=== PATIENT | male | born 1950 | race Caucasian/White ===

== ENCOUNTER → 2016-09-02 | Outpatient (CLI) | payer OTHER ==
[~2016-09-02] MED LIST: AMBIEN CR; AMIT50TA3 PO; AMOXICILLIN; AMT50T; AMX500CRX; ASP325T; ASP81CT; ASP81CT PO; ASPI-999 PO; BACL10TA PO; CALC1TAB38 PO; CALC625T; CALC625T PO; CARV12.52; CARV6.25 PO; CEFU500T5 PO; CHOL10003 PO; CHOL500044 PO; CINNAMON 500 MG PO; CLPL625T; COCO1000 PO; CRV6.25T; CYAN100071 PO; DIPH50CA75 PO; FLAX100031 PO; FLUT1DIS26 IH; FOLIC ACID PO; FRSM40T; FRSM40T PO; GABA300C PO; GLUC1CAP37 PO; HCT25T; HCT25T PO; HYDR-753 PO; IRB150T; IRBE75TA31 PO; IRON; IRON45TA2 PO; LEVO75TA6 PO; LIOTHYSO5 PO; LORA10TA7 PO; LVT.1T PO; MAGN400T6 PO; MELA1TAB16 PO; MELATONIN; METO50TA7 PO; MULT-1029 PO; MULT1TAB63; MULT1TAB63 PO; NF-EXCEDMI; OLME20TA22 PO; OMEG1CAP24 PO; OMG1KC; OMG1KC PO; PNT40TEC PO; POLY1DRO OU; POTA10CA43 PO; ROSU10TA12 PO; SIMV40TA2; TIOT18CA2 IH; UBIQ100C PO; UBIQ100C3 PO; VERA180T PO; VERA40TA2 PO; WRF5T; ZINC15TA2 PO; ZLP5T; ZLP5T PO; [UNRECOGNIZED DRUG - CODE] OU; [UNRECOGNIZED DRUG - CODE] PO; [UNRECOGNIZED DRUG - OTHER] PO; avapro
--- OUTSIDE RECORDS SUMMARY | 2016-09-02 09:09 | XMS REPORT | Continuity of Care Document ---
Author Author [facility] Organization [facility] Address Unknown Phone Unavailable Care Team Providers Care Master Sheet Clerk Name Role Phone Seemamolly Marta PCP [phone] Source Comments Some departments are not documenting in the electronic medical record. If you do not see the information that you expected, contact Release of Information in the Health Information Management department at [phone] for further assistance in locating additional records.[facility] Active Allergies and Adverse Reactions Not on File Current Medications Not on file Active Problems Not on file Social History Tobacco Use Types Packs/Day Years Used Date Never Assessed Last Filed Vital Signs Vital Sign Reading Time Taken Blood Pressure 114/50 12/24/2007 7:30 AM CDT Pulse 75 12/24/2007 7:30 AM CDT Temperature 35.9 C (96.6 F) 12/24/2007 7:30 AM CDT Respiratory Rate - - Height 1.778 m (5' 10") 12/24/2007 7:30 AM CDT Weight 99.791 kg (220 lb) 12/24/2007 7:30 AM CDT Body Mass Index 31.57 12/24/2007 7:30 AM CDT Oxygen Saturation 95% 12/24/2007 7:30 AM CDT Plan of Care Health Maintenance Due Date Last Done Comments Physical (Comprehensive) 1957 Exam Pertussis Vaccine 1960 Tetanus Vaccine 1966 Colorectal Cancer 1999 Screening Shingles Vaccine 2009 Prevnar/Pneumovax (#1) 2014 Influenza Vaccine 04/28/2016 Results from Last 3 Months Not on file
--- NOTE | 2016-09-02 13:54 | Diagnostic Imaging Report ---
PA and lateral views of the chest. INDICATION: Cough and shortness of breath. FINDINGS: When compared to 04/08/2015, there is stable interstitial thickening in the bases likely related to scarring. No definite acute infiltrate. The heart size is normal. No effusion or pneumothorax. Mediastinum unremarkable. There is a pacemaker with two leads seen. IMPRESSION: Stable bilateral thickening in the basilar interstitium suggestive of scarring. No acute process. Dictated by: Dictated on workstation # [id number]
== END ==
LOC: RAD 09:06
PROVIDERS: ATTEND Nurse Practitioner Family
DX: R05 Cough (principal); R06.02 Shortness of breath
CPT/HCPCS: 71020

== ENCOUNTER 2016-09-08 12:24 | Outpatient (CLI) | payer OTHER ==
[~2016-09-08] VITALS: Ht 177.8 cm; Wt 106.3 kg
[~2016-09-08 12:24] MED LIST changes: -BACL10TA PO; -GABA300C PO; -GLUC1CAP37 PO; -HYDR-753 PO; -LORA10TA7 PO; -[UNRECOGNIZED DRUG - CODE] PO
--- OUTSIDE RECORDS SUMMARY | 2016-09-08 12:27 | XMS REPORT | Continuity of Care Document ---
Author Author [facility] Organization [facility] Address Unknown Phone Unavailable Care Team Providers Care Rn Acute Dialysis Name Role Phone Seemamolly Marta PCP [phone] Source Comments Some departments are not documenting in the electronic medical record. If you do not see the information that you expected, contact Release of Information in the Health Information Management department at [phone] for further assistance in locating additional records.[facility] Active Allergies and Adverse Reactions Not [...]
[2016-09-08 12:49] VITALS: BP 119/66
[2016-09-08] MEDS ORDERED: LORA10TA7 PO (13:14)
[2016-09-08] MEDS ORDERED: OMEG1CAP24 PO (13:14)
[2016-09-08] MEDS ORDERED: [UNRECOGNIZED DRUG - CODE] PO (13:14)
[2016-09-08] MEDS ORDERED: GLUC1CAP37 PO (13:14)
[2016-09-08] MEDS ORDERED: GABA300C PO (13:14)
[2016-09-15] MEDS ORDERED: BACL10TA PO (08:10)
[2016-09-15] MEDS ORDERED: HYDR-753 PO (08:10)
== END 2016-09-08 12:45 | disposition home or self-care (01) ==
LOC: PREOP 12:24
PROVIDERS: ATTEND Orthopaedic Surgery Orthopaedic Surgery of the Spine
DX: Z01.818 Encounter for other preprocedural examination (principal); Z11.2 Encounter for screening for other bacterial diseases; M48.06 Spinal stenosis, lumbar region
CPT/HCPCS: 87081

== ENCOUNTER 2016-09-15 06:05 | Day surgery (SDC) | payer OTHER ==
[~2016-09-15] VITALS: Ht 177.8 cm; Wt 106.3 kg
[~2016-09-15 06:05] MED LIST changes: +GABA300C PO; +GLUC1CAP37 PO; +LORA10TA7 PO; +[UNRECOGNIZED DRUG - CODE] PO
--- OUTSIDE RECORDS SUMMARY | 2016-09-15 06:10 | XMS REPORT | Continuity of Care Document ---
Author Author [facility] Organization [facility] Address Unknown Phone Unavailable Care Team Providers Care Emergency Vehicle Dispatcher Name Role Phone Seemamolly Marta PCP [phone] Source Comments Some departments are not documenting in the electronic medical record. If you do not see the information that you expected, contact Release of Information in the Health Information Management department at [phone] for further assistance in locating additional records.[facility] Active Allergies and Adverse Reactions Not on [...]
--- OUTSIDE RECORDS SUMMARY | 2016-09-15 06:10 | XMS REPORT | Continuity of Care Document ---
Author Author [facility] Organization [facility] Address Unknown Phone Unavailable Care Team Providers Care Hospice Fellow Name Role Phone Seemamolly Marta PCP [phone] Source Comments Some departments are not documenting in the electronic medical record. If you do not see the information that you expected, contact Release of Information in the Health Information Management department at [phone] for further assistance in locating additional records.[facility] Active Allergies and Adverse Reactions Not [...]
[2016-09-15 06:20] VITALS: BP 125/56
[2016-09-15] MEDS ORDERED: DEXMEDETOMIDINE PRE-MIX (OR) 50 ML IV ONE (06:24)
[2016-09-15] MEDS ORDERED: MIDAZOLAM 2 MG/2 ML (VERSED) VIAL ONE (06:34)
[2016-09-15] MEDS ORDERED: LIDOCAINE PF 2% 10 ML (XYLOCAINE) AMP ONE (06:34)
[2016-09-15] MEDS ORDERED: LIDOCAINE JELLY 2% (XYLOCAINE) 5 ML TUBE ONE (06:34)
[2016-09-15] MEDS ORDERED: ROCURONIUM 50 MG/5 ML (ZEMURON) VIAL IV ONE (06:34)
[2016-09-15] MEDS ORDERED: ONDANSETRON 4 MG/2 ML (SDV) Z0FRAN ONE (06:34)
[2016-09-15] MEDS ORDERED: LACTATED RINGERS 1,000 ML IV ONE (06:34)
[2016-09-15] MEDS ORDERED: fentaNYL INJECTION 100 MCG/2 ML AMP ONE (06:34)
[2016-09-15] MEDS ORDERED: proPOfol 200 MG/20 ML (DIPRIVAN) VIAL IV ONE (06:34)
[2016-09-15] MEDS ORDERED: RT-ALBUTEROL/IPRATROPIUM 3 ML (DUONEB) VIAL ONE (06:38)
[2016-09-15] MEDS ORDERED: LACTATED RINGERS 1,000 ML IV PRN (06:43)
[2016-09-15] MEDS ORDERED: FAMOTIDINE 20MG/2ML IV (PEPCID) IV ONE (06:45)
[2016-09-15] MEDS ORDERED: RT-ALBUTEROL SULF 2.5 MG/3 ML PRE-MIX VIAL INH ONE (06:45)
[2016-09-15] MEDS ORDERED: ceFAZolin 2 GM IV (SDC ONLY) 50 ML ONE (06:48)
[2016-09-15] MEDS ORDERED: GENTAMICIN 40 MG/ML 2 ML INJ SDV ONE (06:51)
[2016-09-15] MEDS ORDERED: BUP/EPI 0.25% 1:200,000 (MARCAINE) 30 ML VIAL ONE (06:51)
[2016-09-15] MEDS ORDERED: ceFAZolin 2 GM IV (SDC ONLY) 50 ML IV ONE (07:15)
[2016-09-15] MEDS ORDERED: SEVOFLURANE (ULTANE) 15 ML INHAL SOLN ONE ×3 (07:21→07:58)
[2016-09-15] MEDS ORDERED: SUCCINYLCHOLINE INJ 100 MG/5 ML SYR ONE (07:58)
--- NOTE | 2016-09-15 08:06 | Progress Note-Post Operative ---
Post-Operative Progess Note Flight Engineer Manager JESSENIA Reza Pre-Operative Diagnosis spinal stenosis Post-Operative Diagnosis Same Post-Op Procedure Note Date of Procedure: Sep 15, 2016 Name of Procedure: Left L3-4 Anthony-laminectomy Procedure Note/Findings stenosis Anesthesia Type GETA Estimated blood loss (mL): 50 VANITA STRATTON MD Sep 15, 2016 8:06 am
[2016-09-15] MEDS ORDERED: HYDR-753 PO (08:10)
[2016-09-15] MEDS ORDERED: BACL10TA PO (08:10)
[2016-09-15] MEDS ORDERED: morphine INJ 10 MG/ML 1ML (SYR OR VIAL) IVP PRN (08:30)
[2016-09-15] MEDS ORDERED: ONDANSETRON 4 MG/2 ML (SDV) Z0FRAN IVP PRN (08:30)
[2016-09-15] MEDS ORDERED: MEPERIDINE (DEMEROL) INJ 50 MG/ML IVP PRN (08:30)
[2016-09-15 09:20] VITALS: BP 81/52
--- NOTE | 2016-09-15 09:47 | Diagnostic Imaging Report ---
INDICATION: Intraoperative fluoroscopy for localization. FINDINGS AND IMPRESSION: A single lateral intraoperative fluoroscopic image demonstrates a surgical probe subjacent to the posterior elements of L4. A total of 4.2 seconds fluoroscopy time was utilized for this procedure. Operation was performed by Dr. Dumont, and please see operative report for complete details. Dictated by: Dictated on workstation # [id number]
[2016-09-15 09:50] VITALS: BP 92/47
[2016-09-15 10:20] VITALS: BP 100/59
--- NOTE | 2016-09-16 07:41 | OPERATIVE REPORT ---
PROCEDURE PHYSICIAN: VANITA DUMONT DATE OF PROCEDURE: 09/15/2016 PREOPERATIVE DIAGNOSES: 1. Lumbar radiculopathy. 2. Lumbar stenosis. 3. Neural canal due to disk and osseous structures. POSTOPERATIVE DIAGNOSES: 1. Lumbar radiculopathy. 2. Lumbar stenosis. 3. Neural canal due to disk and osseous structures. PROCEDURE PERFORMED: 1. Left L3-L4 hemilaminectomy. 2. Partial medial facetectomy. 3. Foraminotomy. DATE TIME OF SURGERY: Please see anesthesia record. SURGEON: Dr. Dumont. LIBRARY MANAGER: ASHWINI Reza. ROLE OF AIRCRAFT REFUELER: Aid in retraction of the procedure, suction around neural elements, and wound closure. ANESTHESIA: General endotracheal. ESTIMATED BLOOD LOSS: Minimal. IV FLUIDS: Please see anesthesia record. ANTIBIOTICS: Ancef. COMPLICATIONS: None. INDICATION FOR PROCEDURE: Mr. Lee is a 65-year-old male with progressing total back and leg pain, failure to conservative therapy. Standard intraoperative neural monitoring was carried out by means of a real-time continuous high quality bidirectional remote audio and visual communication to both the body art technician and surgeon by Dr. Yu was performed. SSEPs, EMGs and TOFs were carried out continuously throughout the procedure and stable. DESCRIPTION OF PROCEDURE: The patient was brought back to the preoperative holding area and brought back to the operative suite. After adequate induction of general anesthetic, preoperative antibiotics were turned prone on Brannon table. Careful padding to the torso and extremities, sterile prep and drape the posterior lumbar spine. Attention was directed to midline. Incision was made overlying L3-L4. Dissection carried down left side of the spine. C-arm was brought in for confirmation. Once the 3 to 4 level was confirmed, shadow line retractor was placed deep for the remainder of the case. High speed bur was used to create a hemilaminotomy, partial medial facetectomy. Ligamentum flavum was excised, thecal sac and root were decompressed. After full and active decompression was assured, FloSeal and bone wax were used to aid in hemostasis. Hemostasis assured, wound was closed in layers. The patient transferred to the recovery room in stable condition having tolerated the procedure well. Job ID: [id number] Dictated Date: 09/15/2016 08:05:35 Bobbin Cleaning Machine Operator Date: 09/16/2016 07:33:06 / mala
== END 2016-09-15 11:25 | disposition home or self-care (01) ==
LOC: SDC 06:05
PROVIDERS: ATTEND Orthopaedic Surgery Orthopaedic Surgery of the Spine
DX: M48.06 Spinal stenosis, lumbar region (principal); M54.16 Radiculopathy, lumbar region
CPT/HCPCS: 94640

== ENCOUNTER → 2016-10-14 | Outpatient (CLI) | payer OTHER ==
[~2016-10-14] MED LIST changes: +BACL10TA PO; +HYDR-753 PO
--- OUTSIDE RECORDS SUMMARY | 2016-10-14 14:57 | XMS REPORT | Continuity of Care Document ---
Author Author [facility] Organization [facility] Address Unknown Phone Unavailable Care Team Providers Care Anode Builder Name Role Phone Seemamloly Marta PCP [phone] Source Comments Some departments are not documenting in the electronic medical record. If you do not see the information that you expected, contact Release of Information in the Health Information Management department at [phone] for further assistance in locating additional records.[facility] Active Allergies and Adverse Reactions [...]
--- NOTE | 2016-10-14 15:44 | Diagnostic Imaging Report ---
PROCEDURE: CT chest without contrast. TECHNIQUE: Multiple contiguous axial images were obtained through the chest without the use of intravenous contrast. High-resolution 10 mm slices were obtained. INDICATION: Fibrous emphysematous disease with shortness of breath. Comparison with 10/14/2015. FINDINGS: There is again noted fibrous emphysematous disease with subpleural honeycombing noted in the upper and lower lobes. There is associated interlobular septal thickening. This does have a predilection for the subpleural location; however, is present throughout the central portion of the lungs as well. There is mild bronchiectasis present. There is a pulmonary nodule developing in the right upper lobe anteriorly measuring 5 mm. This is not calcified. No mediastinal or hilar adenopathy of pathologic size is demonstrated. There is pacemaker noted on the left with ICD pacer present. No pleural effusions or pericardial effusion. No pneumothorax. IMPRESSION: 1. Panlobar emphysematous changes with subpleural honeycombing and interlobar interstitial lung disease. This has shown slight progression when compared with previous year's exam. 2. There is a 5 mm parenchymal nodule anteriorly in the right upper lobe now which is noncalcified. Dictated by: Dictated on workstation # [id number]
== END ==
LOC: RAD 14:55
PROVIDERS: ATTEND Internal Medicine Critical Care Medicine
DX: J44.0 Chronic obstructive pulmonary disease with (acute) lower respiratory infection (principal); G47.33 Obstructive sleep apnea (adult) (pediatric); R06.02 Shortness of breath
CPT/HCPCS: 71250

== ENCOUNTER → 2016-12-28 | Outpatient (CLI) | payer OTHER | LOC: RT 09:48 | PROVIDERS: ATTEND Internal Medicine Critical Care Medicine | DX: J44.0 Chronic obstructive pulmonary disease with (acute) lower respiratory infection (principal); G47.33 Obstructive sleep apnea (adult) (pediatric); G47.34 Idiopathic sleep related nonobstructive alveolar hypoventilation; R06.02 Shortness of breath ==

== ENCOUNTER → 2017-02-06 | Outpatient (CLI) | payer OTHER ==
--- NOTE | 2017-02-06 15:24 | Diagnostic Imaging Report ---
PROCEDURE: CT chest without contrast. TECHNIQUE: Multiple contiguous axial images were obtained through the chest without the use of intravenous contrast. INDICATION: COPD. Shortness of breath. COMPARISON: 10/14/2016. FINDINGS: Again seen upper lobe predominant centrilobular and paraseptal emphysema changes. There is fibrotic change also seen involving mostly the mid lung zone. This demonstrates no significant change from the previous study. There is no significant consolidation, mass or suspicious nodule seen. The heart size is normal. The thoracic aorta is normal in caliber. There is no mediastinal mass or significantly enlarged lymph node and no axillary lymphadenopathy. There is a pacemaker in place. No pleural or pericardial effusion is seen. Sections in the upper abdomen demonstrate nonobstructive kidney stones up to 4 mm in size. The osseous structures demonstrate mild degenerative changes. IMPRESSION: Emphysema. Mid lung zone fibrotic changes. No significant change from the previous exam. Dictated by: Dictated on workstation # [id number]
== END ==
LOC: RAD 12:42
PROVIDERS: ATTEND Internal Medicine Critical Care Medicine
DX: G47.33 Obstructive sleep apnea (adult) (pediatric) (principal); G47.34 Idiopathic sleep related nonobstructive alveolar hypoventilation; R06.02 Shortness of breath; J43.9 Emphysema, unspecified
CPT/HCPCS: 71250

== ENCOUNTER → 2017-05-10 | Outpatient (CLI) | payer OTHER ==
--- NOTE | 2017-05-10 10:47 | Diagnostic Imaging Report ---
INDICATION: Headache TECHNIQUE: Routine non contrast-enhanced axial images were obtained from the skull base to the vertex. COMPARISON: None. FINDINGS: The ventricles and cortical sulci are diffusely prominent, compatible with age-related volume loss. There are confluent areas of abnormal, low attenuation in the periventricular white matter. This is consistent with small vessel ischemic changes; age-indeterminate. There is no prior study available for comparison. There is no midline shift or mass-effect. No acute intra-axial hemorrhage is seen. There are no abnormal areas of increased or decreased density to suggest acute hemorrhage or edema. No extra-axial masses or collections are present. The bony calvarium is intact. The visualized paranasal sinuses are unremarkable. The mastoid air cells are clear. IMPRESSION: 1. No acute intracranial abnormality. No CT evidence of mass, acute infarct or intracranial hemorrhage. 2. Small vessel ischemic changes in the periventricular and subcortical white matter; likely chronic. Dictated by: Dictated on workstation # [id number]
== END ==
LOC: RAD 10:00
PROVIDERS: ATTEND Physician Assistant
DX: R51 Headache (principal); I35.1 Nonrheumatic aortic (valve) insufficiency; I10 Essential (primary) hypertension; E78.2 Mixed hyperlipidemia; I47.2 Ventricular tachycardia
CPT/HCPCS: 70450

== ENCOUNTER → 2017-05-17 | Outpatient (CLI) | payer OTHER | LOC: CARD 13:40 | PROVIDERS: ATTEND Physician Assistant | DX: I10 Essential (primary) hypertension; I47.2 Ventricular tachycardia; E78.2 Mixed hyperlipidemia; I35.1 Nonrheumatic aortic (valve) insufficiency | CPT/HCPCS: 93306 ==

== ENCOUNTER → 2017-07-18 | Outpatient (CLI) | payer OTHER ==
[2017-07-18 11:45] LABS: ABG BASE EXCESS -0.6 MMOL/L (-2.5-2.5); ABG HCO3 23 MMOL/L (23-27); ABG OXYGEN SATURATION 94 % (94-100); ABG PCO2 35 MMHG (35-45); ABG PH 7.43 (7.37-7.43); ABG PO2 64 MMHG (79-93); ABG TCO2 24.2 MMOL/L (21.0-31.0); ALLENS TEST YES-POS; PATIENT TEMP 97.9
== END ==
LOC: LAB 11:14
PROVIDERS: ATTEND Nurse Practitioner Family
DX: J84.10 Pulmonary fibrosis, unspecified (principal)
CPT/HCPCS: 82805

== ENCOUNTER → 2017-09-18 | Outpatient (CLI) | payer OTHER ==
[~2017-09-18] MED LIST changes: +CATHETER FLUSH 10 ML SYR IV PRN; +IOHEXOL 350 MG/ML 150 ML (OMNIPAQUE 350) VIAL IV ONE; +NS 100 ML (IVPB) BAG IV ONE
--- NOTE | 2017-09-18 17:35 | Diagnostic Imaging Report ---
PROCEDURE: US right lower extremity venous. TECHNIQUE: Multiple real-time grayscale images were obtained over the right lower extremity in various projections. Additional duplex Doppler and color Doppler images were also obtained. INDICATION: Right lower extremity swelling. Findings: The right common femoral, femoral and popliteal veins are patent by color doppler imaging and without DVT. Visualized proximal aspects of the deep femoral and posterior tibial veins are also patent. All of the evaluated deep venous structures demonstrate normal compressibility and waveform augmentation where applicable. Impression: No right lower extremity deep venous thrombosis (DVT). Dictated by: Dictated on workstation # [id number]
--- NOTE | 2017-09-18 18:00 | Diagnostic Imaging Report ---
PROCEDURE: CT angiography of the chest with contrast. TECHNIQUE: Multiple contiguous axial images were obtained through the chest after uneventful bolus administration of intravenous contrast. Reconstructed CTA MIP acquisitions were also performed. INDICATION: Anterior chest pain with coughing. COMPARISON: 02/06/2017. FINDINGS: Vasculature: No pulmonary emboli. Assessment of the upper lobe segmental arteries is limited due to respiratory motion artifact. No CT evidence of pulmonary hypertension or right ventricular strain. Thoracic aorta is normal in caliber. No aortic dissection or pseudoaneurysm. Heart and mediastinum: Visualized thyroid is normal. No supraclavicular, axillary, or intra-thoracic lymphadenopathy. Heart is mildly enlarged without pericardial effusion. Left pectoral transvenous pacemaker has leads in the right atrium and right ventricle. Pleura: No pleural effusion or pneumothorax. Lungs and airway: No endoluminal lesion in the trachea or central bronchi. Rfqaeeoi-sx-trib[place] centrilobular emphysema in the lung apices is unchanged. Paraseptal emphysema in the lung bases is also stable. No superimposed airspace consolidation. No suspicious pulmonary mass or nodule. Upper abdomen: Scattered hypodensities in the liver are unchanged and likely due to cysts. No concerning abnormality in the upper abdomen. Musculoskeletal: No concerning osseous lesion. IMPRESSION: 1. No acute cardiopulmonary process. Specifically, no pulmonary emboli or acute aortic syndrome. 2. Severe emphysema. Dictated by: Dictated on workstation # [id number]
== END ==
LOC: RAD 16:05
PROVIDERS: ATTEND Nurse Practitioner Family
DX: I26.99 Other pulmonary embolism without acute cor pulmonale (principal); J43.9 Emphysema, unspecified; J84.10 Pulmonary fibrosis, unspecified; R06.9 Unspecified abnormalities of breathing
CPT/HCPCS: 71275

== ENCOUNTER → 2017-09-18 | Outpatient (CLI) | payer OTHER ==
[~2017-09-18] MED LIST changes: -CATHETER FLUSH 10 ML SYR IV PRN; -IOHEXOL 350 MG/ML 150 ML (OMNIPAQUE 350) VIAL IV ONE; -NS 100 ML (IVPB) BAG IV ONE
[2017-09-18 14:38] LABS: BASOPHILS # (AUTO) 0.1 10^3/uL (0.0-0.1); BASOPHILS % (AUTO) 1 % (0-10); EOSINOPHILS # (AUTO) 0.1 10^3/uL (0.0-0.3); EOSINOPHILS % (AUTO) 1 % (0-10); HEMATOCRIT 41 % (40-54); HEMOGLOBIN 14.2 G/DL (13.3-17.7); LYMPHOCYTES % (AUTO) 13 % (12-44); MEAN CORPUSCULAR HEMOGLOBIN 33 PG (25-34); MEAN CORPUSCULAR HGB CONC 34 G/DL (32-36); MEAN CORPUSCULAR VOLUME 97 FL (80-99); MEAN PLATELET VOLUME 9.6 FL (7.4-10.4); MONOCYTES % (AUTO) 13 % (0-12); NEUTROPHILS # (AUTO) 5.7 X 10^3 (1.8-7.8); NEUTROPHILS % (AUTO) 73 % (42-75); PLATELET COUNT 245 10^3/uL (130-400); RED BLOOD COUNT 4.26 10^6/uL (4.35-5.85); RED CELL DISTRIBUTION WIDTH 13.5 % (10.0-14.5); WHITE BLOOD COUNT 7.9 10^3/uL (4.3-11.0)
--- NOTE | 2017-09-18 15:34 | Diagnostic Imaging Report ---
INDICATION: Pulmonary fibrosis and atypical pneumonia. TIME OF EXAM: 02:11 p.m. Correlation is made with prior study from 09/02/2016. FINDINGS: The heart size is stable. Cardiac defibrillator remains in place. There are some interstitial changes in both lungs, stable and likely chronic. No parenchymal consolidation is seen. No effusion or pneumothorax is seen. IMPRESSION: Stable chest since exam one year earlier. Dictated by: Dictated on workstation # [id number]
[2017-09-18 17:20] LABS: BUN/CREATININE RATIO 18; CREATININE SERUM 0.96 MG/DL (0.60-1.30); GFR ESTIMATED > 60
== END ==
LOC: RAD 13:59
PROVIDERS: ATTEND Nurse Practitioner Family
DX: J18.9 Pneumonia, unspecified organism (principal); J84.10 Pulmonary fibrosis, unspecified
CPT/HCPCS: 36415; 71046; 82565; 83880; 84443; 84520; 85025

== ENCOUNTER → 2017-11-02 | Outpatient (CLI) | payer OTHER ==
[~2017-11-02] MED LIST changes: +OLME20TA21 PO; -OLME20TA22 PO
== END ==
LOC: CARD 09:47
PROVIDERS: ATTEND Internal Medicine Cardiovascular Disease
DX: I35.1 Nonrheumatic aortic (valve) insufficiency (principal); I11.0 Hypertensive heart disease with heart failure; I50.22 Chronic systolic (congestive) heart failure; R06.09 Other forms of dyspnea; E78.2 Mixed hyperlipidemia; J44.9 Chronic obstructive pulmonary disease, unspecified

== ENCOUNTER 2017-11-04 21:12 | Outpatient (CLI) | payer OTHER | END 2017-11-05 06:20 | disposition home or self-care (01) | LOC: SLEEP 21:12 | PROVIDERS: ATTEND Nurse Practitioner Family | DX: G47.33 Obstructive sleep apnea (adult) (pediatric) (principal); G47.34 Idiopathic sleep related nonobstructive alveolar hypoventilation; J44.0 Chronic obstructive pulmonary disease with (acute) lower respiratory infection; J20.9 Acute bronchitis, unspecified | CPT/HCPCS: 95811 ==

== ENCOUNTER 2017-11-22 20:07 | Outpatient (CLI) | payer OTHER | END 2017-11-23 06:10 | disposition home or self-care (01) | LOC: SLEEP 20:07 | PROVIDERS: ATTEND Nurse Practitioner Family | DX: G47.33 Obstructive sleep apnea (adult) (pediatric) (principal); G47.34 Idiopathic sleep related nonobstructive alveolar hypoventilation; G47.50 Parasomnia, unspecified; G47.10 Hypersomnia, unspecified | CPT/HCPCS: 95811 ==

== ENCOUNTER → 2018-02-13 | Outpatient (CLI) | payer OTHER ==
[2018-02-13 16:49] LABS: BUN/CREATININE RATIO 21; CALCIUM 9.7 MG/DL (8.5-10.1); CARBON DIOXIDE 22 MMOL/L (21-32); CHLORIDE 109 MMOL/L (98-107); CREATININE SERUM 0.92 MG/DL (0.60-1.30); GFR ESTIMATED > 60; GLUCOSE 123 MG/DL (70-105); POTASSIUM 4.1 MMOL/L (3.6-5.0); SODIUM 142 MMOL/L (135-145)
== END ==
LOC: CARD 13:13
DX: Z01.810 Encounter for preprocedural cardiovascular examination (principal); Z01.812 Encounter for preprocedural laboratory examination; J98.4 Other disorders of lung
CPT/HCPCS: 36415; 80048; 85018; 93005

== ENCOUNTER → 2018-09-27 | Outpatient (CLI) | payer OTHER ==
[~2018-09-27] MED LIST changes: +HYDR-4196 PO; -HYDR-753 PO
[2018-09-27 08:51] LABS: ALANINE AMINOTRANSFERASE 25 U/L (0-55); ALBUMIN 4.1 GM/DL (3.2-4.5); ALKALINE PHOSPHATASE 52 U/L (40-136); BILIRUBIN,TOTAL 0.6 MG/DL (0.1-1.0); BUN/CREATININE RATIO 16; CALCIUM 9.6 MG/DL (8.5-10.1); CARBON DIOXIDE 26 MMOL/L (21-32); CHLORIDE 106 MMOL/L (98-107); CHOLESTEROL 137 MG/DL (< 200); CREATININE SERUM 0.94 MG/DL (0.60-1.30); GFR ESTIMATED > 60; GLUCOSE 100 MG/DL (70-105); HDL CHOLESTEROL 58 MG/DL (40-60); POTASSIUM 4.4 MMOL/L (3.6-5.0); SODIUM 139 MMOL/L (135-145); TOTAL PROTEIN 7.5 GM/DL (6.4-8.2); TRIGLYCERIDES 129 MG/DL (<150); VLDL CHOLESTEROL 26 MG/DL (5-40)
== END ==
LOC: LAB 08:13
PROVIDERS: ATTEND Internal Medicine Cardiovascular Disease
DX: I10 Essential (primary) hypertension (principal); M19.90 Unspecified osteoarthritis, unspecified site; R06.09 Other forms of dyspnea; E78.2 Mixed hyperlipidemia; I26.99 Other pulmonary embolism without acute cor pulmonale
CPT/HCPCS: 36415; 80053; 80061

== ENCOUNTER → 2019-06-10 | Outpatient (CLI) | payer OTHER | LOC: CARD 12:46 | PROVIDERS: ATTEND Physician Assistant | DX: I08.2 Rheumatic disorders of both aortic and tricuspid valves (principal); I11.0 Hypertensive heart disease with heart failure; I50.9 Heart failure, unspecified; E78.2 Mixed hyperlipidemia; J84.10 Pulmonary fibrosis, unspecified; J44.9 Chronic obstructive pulmonary disease, unspecified | CPT/HCPCS: 93306 ==

== ENCOUNTER → 2019-08-22 | Outpatient (CLI) | payer OTHER ==
[~2019-08-22] MED LIST changes: +CATHETER FLUSH 10 ML SYR IV PRN; +HOLD METFORMIN - RECEIVED CONTRAST 20 ML VIAL IV SCH; +IOHEXOL 350 MG/ML 100 ML (OMNIPAQUE 350) VIAL IV ONE; +NS 100 ML (IVPB) BAG IV ONE
--- NOTE | 2019-08-22 12:22 | Diagnostic Imaging Report ---
CLINICAL INDICATION: Patient with vision changes in the right eye x2 months. Patient has lens implants on both sides. EXAM: Axial CT scan of the brain without and with 80 mL of Omnipaque 350 IV contrast with coronal reformatted images. Auto Exposure Controls were utilized during the CT exam to meet ALARA standards for radiation dose reduction. COMPARISON: Head CT without contrast dated 05/10/2017. FINDINGS: There is no evidence of acute cerebral infarct, intracranial hemorrhage, or gross mass effect. There is no abnormal IV contrast enhancement. The brain parenchymal volume appears appropriate for patient's age. There is normal morales-white matter distinction. There is no significant midline shift or herniation. The [place] vascular structures show no gross abnormality as visualized. There is no evidence of hydrocephalus. The basal cisterns are unremarkable. The skull, extracranial soft tissue, and orbits are unremarkable. The paranasal sinuses are unremarkable. Temporal bones show no significant abnormality. IMPRESSION: Unremarkable CT scan of the brain. Dictated by: Dictated on workstation # [id number]
== END ==
LOC: RAD 11:14
PROVIDERS: ATTEND Family Medicine
DX: H54.7 Unspecified visual loss (principal); M62.81 Muscle weakness (generalized); R20.0 Anesthesia of skin
CPT/HCPCS: 70470

== ENCOUNTER → 2019-08-30 | Outpatient (CLI) | payer OTHER ==
[~2019-08-30] MED LIST changes: -CATHETER FLUSH 10 ML SYR IV PRN; -HOLD METFORMIN - RECEIVED CONTRAST 20 ML VIAL IV SCH; -IOHEXOL 350 MG/ML 100 ML (OMNIPAQUE 350) VIAL IV ONE; -NS 100 ML (IVPB) BAG IV ONE
[2019-08-30 10:32] LABS: BASOPHILS % (AUTO) 0 % (0-10); EOSINOPHILS # (AUTO) 0.7 10^3/uL (0.0-0.3); EOSINOPHILS % (AUTO) 6 % (0-10); HEMATOCRIT 41 % (40-54); HEMOGLOBIN 13.7 G/DL (13.3-17.7); LYMPHOCYTES # (AUTO) 1.3 X 10^3 (1.0-4.0); LYMPHOCYTES % (AUTO) 13 % (12-44); MEAN CORPUSCULAR HEMOGLOBIN 33 PG (25-34); MEAN CORPUSCULAR HGB CONC 33 G/DL (32-36); MEAN CORPUSCULAR VOLUME 98 FL (80-99); MEAN PLATELET VOLUME 9.3 FL (7.4-10.4); MONOCYTES # (AUTO) 1.1 X 10^3 (0.0-1.0); MONOCYTES % (AUTO) 11 % (0-12); NEUTROPHILS # (AUTO) 7.2 X 10^3 (1.8-7.8); NEUTROPHILS % (AUTO) 70 % (42-75); PLATELET COUNT 315 10^3/uL (130-400); RED CELL DISTRIBUTION WIDTH 13.3 % (10.0-14.5); WHITE BLOOD COUNT 10.3 10^3/uL (4.3-11.0)
[2019-08-30 10:55] LABS: ALANINE AMINOTRANSFERASE 17 U/L (0-55); ALKALINE PHOSPHATASE 73 U/L (40-136); BILIRUBIN,TOTAL 0.5 MG/DL (0.1-1.0); BUN/CREATININE RATIO 15; CALCIUM 9.3 MG/DL (8.5-10.1); CARBON DIOXIDE 20 MMOL/L (21-32); CHLORIDE 105 MMOL/L (98-107); CREATININE SERUM 1.05 MG/DL (0.60-1.30); GFR ESTIMATED > 60; GLUCOSE 101 MG/DL (70-105); POTASSIUM 4.4 MMOL/L (3.6-5.0); SODIUM 139 MMOL/L (135-145); TOTAL PROTEIN 7.8 GM/DL (6.4-8.2)
--- NOTE | 2019-08-30 12:23 | Diagnostic Imaging Report ---
INDICATION: Evaluate for pneumonia. TIME OF EXAM: 12:02 p.m. COMPARISON: Correlation is made with prior chest from 09/18/2017. FINDINGS: Heart size is stable. Cardiac defibrillator remains in place. There are some interstitial changes in both lungs, similar to prior exam. No parenchymal consolidation is seen. There is no effusion or pneumothorax. IMPRESSION: Stable chronic interstitial changes when compared with examination from two years earlier. Dictated by: Dictated on workstation # [id number]
== END ==
LOC: CARD 10:11
PROVIDERS: ATTEND Nurse Practitioner Family
DX: J18.9 Pneumonia, unspecified organism (principal); Z95.1 Presence of aortocoronary bypass graft
CPT/HCPCS: 36415; 71046; 80053; 84484; 85025; 93005

== ENCOUNTER → 2019-09-11 | Outpatient (CLI) | payer OTHER ==
[2019-09-11 08:43] LABS: BASOPHILS # (AUTO) 0.1 10^3/uL (0.0-0.1); BASOPHILS % (AUTO) 1 % (0-10); EOSINOPHILS # (AUTO) 0.3 10^3/uL (0.0-0.3); EOSINOPHILS % (AUTO) 4 % (0-10); HEMATOCRIT 42 % (40-54); HEMOGLOBIN 13.9 G/DL (13.3-17.7); LYMPHOCYTES # (AUTO) 1.8 X 10^3 (1.0-4.0); LYMPHOCYTES % (AUTO) 22 % (12-44); MEAN CORPUSCULAR HEMOGLOBIN 32 PG (25-34); MEAN CORPUSCULAR HGB CONC 33 G/DL (32-36); MEAN CORPUSCULAR VOLUME 98 FL (80-99); MEAN PLATELET VOLUME 9.4 FL (7.4-10.4); MONOCYTES # (AUTO) 0.9 X 10^3 (0.0-1.0); MONOCYTES % (AUTO) 11 % (0-12); NEUTROPHILS # (AUTO) 4.9 X 10^3 (1.8-7.8); NEUTROPHILS % (AUTO) 62 % (42-75); PLATELET COUNT 335 10^3/uL (130-400); RED CELL DISTRIBUTION WIDTH 13.7 % (10.0-14.5); WHITE BLOOD COUNT 7.9 10^3/uL (4.3-11.0)
[2019-09-11 09:07] LABS: ALANINE AMINOTRANSFERASE 21 U/L (0-55); ALBUMIN 3.9 GM/DL (3.2-4.5); ALKALINE PHOSPHATASE 56 U/L (40-136); BILIRUBIN,TOTAL 0.5 MG/DL (0.1-1.0); BUN/CREATININE RATIO 21; CARBON DIOXIDE 24 MMOL/L (21-32); CHLORIDE 105 MMOL/L (98-107); CREATININE SERUM 0.96 MG/DL (0.60-1.30); GFR ESTIMATED > 60; GLUCOSE 94 MG/DL (70-105); POTASSIUM 4.5 MMOL/L (3.6-5.0); SODIUM 136 MMOL/L (135-145); TOTAL PROTEIN 7.1 GM/DL (6.4-8.2)
== END ==
LOC: LAB 08:20
PROVIDERS: ATTEND Specialist
DX: G45.8 Other transient cerebral ischemic attacks and related syndromes (principal)
CPT/HCPCS: 36415; 80053; 82607; 83036; 83090; 83921; 84443; 85025

== ENCOUNTER → 2019-09-12 | Outpatient (CLI) | payer OTHER | LOC: CARD 08:27 | PROVIDERS: ATTEND Internal Medicine Interventional Cardiology | DX: I08.0 Rheumatic disorders of both mitral and aortic valves (principal); I47.2 Ventricular tachycardia; J84.10 Pulmonary fibrosis, unspecified; I49.3 Ventricular premature depolarization; I42.8 Other cardiomyopathies; Z95.810 Presence of automatic (implantable) cardiac defibrillator | CPT/HCPCS: 93225; 93226; 93306 ==

== ENCOUNTER → 2019-10-02 | Outpatient (CLI) | payer OTHER ==
[~2019-10-02] MED LIST changes: +RT-ALBUTEROL SULF 2.5 MG/3 ML PRE-MIX VIAL INH ONE
== END ==
LOC: RT 10:09
PROVIDERS: ATTEND Internal Medicine Interventional Cardiology
DX: J84.10 Pulmonary fibrosis, unspecified (principal)
CPT/HCPCS: 94060; 94726; 94729

== ENCOUNTER → 2019-10-11 | Outpatient (CLI) | payer OTHER ==
[~2019-10-11] MED LIST changes: -RT-ALBUTEROL SULF 2.5 MG/3 ML PRE-MIX VIAL INH ONE
== END ==
LOC: CARD 08:12
PROVIDERS: ATTEND Internal Medicine Interventional Cardiology
DX: I49.3 Ventricular premature depolarization (principal); I47.2 Ventricular tachycardia
CPT/HCPCS: 93225; 93226

== ENCOUNTER 2019-10-16 08:03 | Outpatient (RCR) | payer OTHER ==
[2019-10-24] MEDS ORDERED: IRBE150T50 PO (09:20)
[2019-10-24] MEDS ORDERED: VITAMIN PO (09:20)
[2019-10-24] MEDS ORDERED: VERA240T PO (09:22)
[2019-10-24] MEDS ORDERED: METO-333 PO (09:28)
[2019-10-24] MEDS ORDERED: CALC200T50 PO (09:28)
[2019-10-24] MEDS ORDERED: NF-MEXI150 PO (09:28)
[2019-10-24] MEDS ORDERED: CETI10TA21 PO (09:28)
[2019-10-24] MEDS ORDERED: CYAN-23 PO (09:28)
[2019-10-24] MEDS ORDERED: NITR0.4T42 SL (09:28)
[2019-10-24] MEDS ORDERED: CEPH-507 PO (12:02)
== END 2020-01-14 | disposition home or self-care (01) ==
LOC: PULM 08:03
PROVIDERS: ATTEND Nurse Practitioner Family
DX: J84.10 Pulmonary fibrosis, unspecified (principal)
CPT/HCPCS: 99211

== ENCOUNTER → 2019-10-22 | Outpatient (CLI) | payer OTHER ==
[~2019-10-22] MED LIST changes: +CALC200T50 PO; +CEPH-507 PO; +CETI10TA21 PO; +CYAN-23 PO; +IRBE150T50 PO; +METO-333 PO; +NF-MEXI150 PO; +NITR0.4T42 SL; +VERA240T PO; +VITAMIN PO
--- NOTE | 2019-10-22 16:39 | Diagnostic Imaging Report ---
CT CHEST WO TECHNIQUE: Multiple contiguous axial images were obtained through the chest without the use of intravenous contrast. All CT scans use one or more of the following dose optimizing techniques: automated exposure control, MA and/or KvP adjustment based on a patient size and exam type, or iterative reconstruction. INDICATION: Pulmonary fibrosis. COMPARISON: Shortness of air. FINDINGS: Lungs and airway: No endoluminal nodule within the trachea. Severe centrilobular and paraseptal emphysema is present. In the mid lung zones, there are a few areas of subpleural stack cystic change suggestive of early pulmonary fibrosis. Additionally, there are some areas of bronchiolectasis in the lung bases. No pulmonary mass or nodule. Pleura: No pleural effusion or pneumothorax. Heart and mediastinum: No mediastinal, discrete hilar or juxtaphrenic lymphadenopathy. Heart remains borderline enlarged without pericardial effusion. Coronary artery calcifications are unchanged. Normal caliber thoracic aorta. Left pectoral transvenous pacemaker is in stable position. Upper abdomen: There are a few subcentimeter hypodensities within the dome of the liver that are stable. Musculoskeletal: No concerning focal osseous lesions. IMPRESSION: 1. Severe emphysema is unchanged. 2. Small volume of pulmonary fibrosis in the mid lungs has not substantially changed since 2017. Dictated by: Dictated on workstation # [id number]
== END ==
LOC: RAD 15:43
PROVIDERS: ATTEND Nurse Practitioner Family
DX: J84.10 Pulmonary fibrosis, unspecified (principal); G47.33 Obstructive sleep apnea (adult) (pediatric); J43.9 Emphysema, unspecified
CPT/HCPCS: 71250

== ENCOUNTER 2019-10-24 08:10 | Day surgery (SDC) | payer OTHER ==
[~2019-10-24] VITALS: Ht 177.8 cm; Wt 105.0 kg
[2019-10-24] VITALS (10 sets, daily range): BP systolic 125–153; BP diastolic 82–100
[~2019-10-24 08:10] MED LIST changes: -CALC200T50 PO; -CEPH-507 PO; -CETI10TA21 PO; -CYAN-23 PO; -IRBE150T50 PO; +LACTATED RINGERS 1,000 ML IV PRN; -METO-333 PO; -NF-MEXI150 PO; -NITR0.4T42 SL; -VERA240T PO; -VITAMIN PO
[2019-10-24] MEDS ORDERED: HEParin (CATH LAB) 1,000 ML IV ONE (08:13)
[2019-10-24] MEDS ORDERED: ceFAZolin INJECTION 0 MG ONE (08:13)
[2019-10-24] MEDS ORDERED: NS IV 1000 ML 1,000 ML ONE (08:13)
[2019-10-24] MEDS ORDERED: LIDOCAINE 1% INJ 20 ML 20 ML VIAL ONE (08:13)
[2019-10-24] MEDS ORDERED: NS IV 1000 ML 1,000 ML IV ONE (08:22)
[2019-10-24] MEDS ORDERED: ceFAZolin 2 GM/50 ML NS 50 ML IV ONE (08:30)
[2019-10-24] MEDS ORDERED: BACITRACIN INJECTION 50,000 UNIT, SODIUM CHLORIDE 0.9% IRRIGATIO 500 ML IR ONE ×2 (08:30)
[2019-10-24 08:48] LABS: MEAN PLATELET VOLUME 9.9 FL (7.4-10.4); RED CELL DISTRIBUTION WIDTH 13.7 % (10.0-14.5)
[2019-10-24 09:02] LABS: INR 0.9 (0.8-1.4); PROTHROMBIN TIME PATIENT 12.5 SEC (12.2-14.7)
[2019-10-24 09:08] LABS: ALBUMIN 4.4 GM/DL (3.2-4.5); BILIRUBIN,TOTAL 0.6 MG/DL (0.1-1.0); CALCIUM 9.7 MG/DL (8.5-10.1); CREATININE SERUM 1.23 MG/DL (0.60-1.30); POTASSIUM 4.5 MMOL/L (3.6-5.0); TOTAL PROTEIN 8.4 GM/DL (6.4-8.2)
[2019-10-24] MEDS ORDERED: IRBE150T50 PO (09:20)
[2019-10-24] MEDS ORDERED: VITAMIN PO (09:20)
[2019-10-24] MEDS ORDERED: VERA240T PO (09:22)
[2019-10-24] MEDS ORDERED: METO-333 PO (09:28)
[2019-10-24] MEDS ORDERED: CALC200T50 PO (09:28)
[2019-10-24] MEDS ORDERED: NF-MEXI150 PO (09:28)
[2019-10-24] MEDS ORDERED: NITR0.4T42 SL (09:28)
[2019-10-24] MEDS ORDERED: CYAN-23 PO (09:28)
[2019-10-24] MEDS ORDERED: CETI10TA21 PO (09:28)
[2019-10-24] MEDS ORDERED: MIDAZOLAM 5 MG/5 ML (VERSED) VIAL ONE ×2 (10:06→11:00)
[2019-10-24] MEDS ORDERED: fentaNYL INJECTION 100 MCG/2 ML AMP ONE ×2 (10:06→11:00)
--- NOTE | 2019-10-24 11:38 | Cardiac Procedure Note-CS/ASA ---
Pre-Procedure Note Pre-Op Procedure Note H&P Reviewed The H&P was reviewed, patient examined and no changes noted. Date H&P Reviewed: Oct 24, 2019 Time H&P Reviewed: 08:30 Conscious Sedation Pre-Proced Time 08:30 ASA Score 3 For ASA 3 and 4: Consider anesthesia and medical clearance. Also, for patients with a history of failed moderate sedation consider anesthesia. Airway Lungs Heart ASA score ASA 1: a normal healthy patient ASA 2: a patient with a mild systemic disease (mid diabetes, controlled hypertension, obesity ASA 3: a patient with a severe systemic disease that limits activity (angina, COPD, prior Myocardial infarction) ASA 4: a patient with an incapacitating disease that is a constant threat to life (CHF, renal failure) ASA 5: a moribund patient not expected to survive 24 hrs. (ruptured aneurysm) ASA 6: a declared brain- patient whose organs are being harvested. For emergent operations, add the letter E after the classification Mallampati Classification Grade 1 Sedation Plan Analgesia, Amnesia, Plan communicated to team members, Discussed options with patient/fam, Discussed risks with patient/fam The patient is an appropriate candidate to undergo the planned procedure, sedation, and anesthesia. The patient immediately re-assessed prior to indication. Wendy PERDUE MD Oct 24, 2019 11:38
[2019-10-24] MEDS ORDERED: NS IV 1000 ML 1,000 ML IV SCH (11:50)
--- NOTE | 2019-10-24 11:50 | ICD Implantation ---
Single Chamber ICD Implant DATE OF SERVICE: 10/24/2019 Dual-chamber ICD generator change CARDIAC FINGERNAIL TECHNICIAN: Ed Barrett MD INDICATION: Cardiomyopathy, ICD at AN[place]AR[place]. PREOPERATIVE DIAGNOSES: Cardiomyopathy, ICD at [place]. POSTOPERATIVE DIAGNOSES: Cardiomyopathy, successful dual-chamber ICD generator change. HISTORY: This is a 69-year-old gentleman with history of cardiomyopathy and dual-chamber ICD at [place]AR[place]. ICD generator change is recommended. PROCEDURE PERFORMED: 1. Pocket revision. 2. Dual chamber ICD generator change. COMPLICATIONS: None. ESTIMATED BLOOD LOSS: 20 mL. SPECIMENS: None. ANESTHESIA: Conscious sedation. ORAL ANTICOAGULATION: None. FLUOROSCOPY TIME: 0 minutes. FLUOROSCOPY DOSE: 0 CONTRAST DOSE: None used. PROCEDURE DETAILS: After all the questions were answered, an informed consent was taken. All the risks and complication were explained in detail. The patient was brought to the EP lab. The patient's right and left chest was prepped and draped in the usual sterile fashion. A 2-inch horizontal incision was made 1 cm below the clavicle and dissection carried down to the pectoralis fascia. IV antibiotics were administered prior to first incision. With the plasma blade skin revision, pocket revision was done. The previous ICD generator was explanted. We then took an new ICD generator and the lead was connected to the device in a hermetic fashion. The device and it was placed in the pocket with a Tyrex pouch. Aggressive irrigation with normal saline solution was done. Interrogation of the device revealed good integrity of the leads and connection. The wound was closed using 2 layers. The first layer was an interrupted 2-0 Vicryl. The second layer was an uninterrupted 4-0 Vicryl suture. Half inch Steri-Strips and a small dressing was then applied to the wound. The patient tolerated procedure well and did not have any complication. DEVICE INFORMATION: Removed defibrillator: Medtronic ICD [id number] Protecta XT US MR, Product # [id number]. Serial number [id number]. Implant date 09/26/2012. New defibrillator: Medtronic ICD [id number] [facility] S OUS/US DF1 Previous leads: Right atrium model number 507 652, length 52, serial number [id number], implant date 05/21/2002. Right ventricular lead: Model number [id number], length 58, serial number [id number], implant date 05/21/2002. DEVICE INTERROGATION IMMEDIATELY POSTOP: right atrial P-wave 1.8 mV, pacing impedance 418 ohms, pacing threshold 0.5 V at 0.4 ms. Right ventricular R wave 5.5 mV, pacing impedance 513 ohms, HVB impedance 62 ohms, HVX impedance 61 ohms, capture threshold 0.75 V at 0.4 ms. PLAN: The patient will be observed for 4 hours. By mouth antibiotics for 5 days. Ed Barrett MD, [facility] Cardiac Electrophysiology Wendy BARRETT MD Oct 24, 2019 11:50
--- NOTE | 2019-10-24 11:54 | Discharge Inst-Post Device ---
Discharge Inst-Post Device Reconcile Patient Problems Problems Reviewed?: Yes Final Diagnosis Cardiomyopathy, dual-chamber ICD generator change. Follow up/Plan Follow-up with Dr. Barrett's RN for wound check in one week. Follow-up for device interrogation in 4-6 weeks. Heart Healthy Diet Activity as tolerated. No driving for one week. Leave dressing on until follow up at the office. Wendy BARRETT MD Oct 24, 2019 11:54
[2019-10-24] MEDS ORDERED: PATIENT MAY USE OWN MEDS, ALL PO SCH (12:00)
[2019-10-24] MEDS ORDERED: CEPH-507 PO (12:02)
== END 2019-10-24 16:30 | disposition home or self-care (01) ==
LOC: CATH 08:10 → SDC 12:19 → CATH 16:30
PROVIDERS: ATTEND Internal Medicine Interventional Cardiology
DX: I42.8 Other cardiomyopathies (principal); I35.1 Nonrheumatic aortic (valve) insufficiency; I48.91 Unspecified atrial fibrillation; I50.9 Heart failure, unspecified; I11.0 Hypertensive heart disease with heart failure; I65.8 Occlusion and stenosis of other precerebral arteries; I49.3 Ventricular premature depolarization; E78.2 Mixed hyperlipidemia; E03.9 Hypothyroidism, unspecified; G47.33 Obstructive sleep apnea (adult) (pediatric); J84.10 Pulmonary fibrosis, unspecified; Z85.830 Personal history of malignant neoplasm of bone; Z96.641 Presence of right artificial hip joint; Z87.891 Personal history of nicotine dependence; Z88.8 Allergy status to other drugs, medicaments and biological substances; Z91.048 Other nonmedicinal substance allergy status; Z99.89 Dependence on other enabling machines and devices; Z79.899 Other long term (current) drug therapy; Z79.82 Long term (current) use of aspirin; Z95.810 Presence of automatic (implantable) cardiac defibrillator
CPT/HCPCS: 33223; 33263; 36415; 36430; 80053; 85027; 85610; 85730; 87081

== ENCOUNTER 2019-11-05 05:44 | Outpatient (CLI) | payer OTHER ==
[~2019-11-05] VITALS: Ht 177.8 cm; Wt 107.1 kg
[~2019-11-05 05:44] MED LIST changes: +CALC200T50 PO; +CEPH-507 PO; +CETI10TA21 PO; +CYAN-23 PO; +IRBE150T50 PO; -LACTATED RINGERS 1,000 ML IV PRN; +METO-333 PO; +NF-MEXI150 PO; +NITR0.4T42 SL; +VERA240T PO; +VITAMIN PO
== END 2019-11-05 10:28 | disposition home or self-care (01) ==
LOC: PREOP 05:44
PROVIDERS: ATTEND Internal Medicine Critical Care Medicine
DX: Z01.818 Encounter for other preprocedural examination (principal)

== ENCOUNTER → 2019-11-08 | Outpatient (CLI) | payer OTHER ==
[2019-11-08 15:53] LABS: EOSINOPHILS # (AUTO) 0.1 10^3/uL (0.0-0.3); WHITE BLOOD COUNT 9.7 10^3/uL (4.3-11.0)
== END ==
LOC: LAB 15:18
PROVIDERS: ATTEND Internal Medicine Critical Care Medicine
DX: J84.10 Pulmonary fibrosis, unspecified (principal)
CPT/HCPCS: 36415; 82164; 82784; 82785; 85004; 85048; 85652; 86021; 86038; 86141; 86160; 86200; 86225; 86235; 86431

== ENCOUNTER → 2019-11-29 | Outpatient (CLI) | payer OTHER ==
[2019-11-29 11:45] LABS: ALANINE AMINOTRANSFERASE 26 U/L (0-55); ALBUMIN 4.2 GM/DL (3.2-4.5); ALKALINE PHOSPHATASE 54 U/L (40-136); BILIRUBIN,TOTAL 0.3 MG/DL (0.1-1.0); BUN/CREATININE RATIO 14; CALCIUM 9.2 MG/DL (8.5-10.1); CARBON DIOXIDE 21 MMOL/L (21-32); CHLORIDE 108 MMOL/L (98-107); CHOLESTEROL 164 MG/DL (< 200); CREATININE SERUM 1.13 MG/DL (0.60-1.30); GFR ESTIMATED > 60; GLUCOSE 120 MG/DL (70-105); HDL CHOLESTEROL 65 MG/DL (40-60); POTASSIUM 4.6 MMOL/L (3.6-5.0); SODIUM 142 MMOL/L (135-145); TOTAL PROTEIN 8.1 GM/DL (6.4-8.2); TRIGLYCERIDES 119 MG/DL (<150); VLDL CHOLESTEROL 24 MG/DL (5-40)
== END ==
LOC: LAB 11:15
PROVIDERS: ATTEND Physician Assistant
DX: I10 Essential (primary) hypertension (principal); E78.2 Mixed hyperlipidemia
CPT/HCPCS: 36415; 80053; 80061

== ENCOUNTER → 2020-01-22 | Outpatient (CLI) | payer OTHER ==
[2020-01-22 11:48] LABS: ALBUMIN 4.2 GM/DL (3.2-4.5); BILIRUBIN,DIRECT 0.3 MG/DL (0.0-0.3); BILIRUBIN,INDIRECT 0.3 MG/DL; BILIRUBIN,TOTAL 0.6 MG/DL (0.1-1.0); TOTAL PROTEIN 8.1 GM/DL (6.4-8.2)
== END ==
LOC: LAB 11:17
PROVIDERS: ATTEND Nurse Practitioner Family
DX: J84.10 Pulmonary fibrosis, unspecified (principal); Z79.899 Other long term (current) drug therapy
CPT/HCPCS: 36415; 80076

== ENCOUNTER → 2020-02-11 | Outpatient (CLI) | payer OTHER ==
[2020-02-11 10:30] LABS: BASOPHILS % (AUTO) 1 % (0-10); EOSINOPHILS # (AUTO) 0.2 10^3/uL (0.0-0.3); EOSINOPHILS % (AUTO) 3 % (0-10); HEMATOCRIT 43 % (40-54); HEMOGLOBIN 14.7 G/DL (13.3-17.7); LYMPHOCYTES # (AUTO) 1.6 X 10^3 (1.0-4.0); LYMPHOCYTES % (AUTO) 22 % (12-44); MEAN CORPUSCULAR HEMOGLOBIN 33 PG (25-34); MEAN CORPUSCULAR HGB CONC 34 G/DL (32-36); MEAN CORPUSCULAR VOLUME 96 FL (80-99); MEAN PLATELET VOLUME 9.5 FL (7.4-10.4); MONOCYTES # (AUTO) 0.9 X 10^3 (0.0-1.0); MONOCYTES % (AUTO) 13 % (0-12); NEUTROPHILS # (AUTO) 4.4 X 10^3 (1.8-7.8); NEUTROPHILS % (AUTO) 62 % (42-75); PLATELET COUNT 307 10^3/uL (130-400); RED CELL DISTRIBUTION WIDTH 13.5 % (10.0-14.5); WHITE BLOOD COUNT 7.2 10^3/uL (4.3-11.0)
[2020-02-11 11:01] LABS: ALANINE AMINOTRANSFERASE 28 U/L (0-55); ALKALINE PHOSPHATASE 56 U/L (40-136); BILIRUBIN,TOTAL 0.5 MG/DL (0.1-1.0); BUN/CREATININE RATIO 16; CALCIUM 9.4 MG/DL (8.5-10.1); CARBON DIOXIDE 22 MMOL/L (21-32); CHLORIDE 108 MMOL/L (98-107); CREATININE SERUM 1.01 MG/DL (0.60-1.30); GFR ESTIMATED > 60; GLUCOSE 104 MG/DL (70-105); POTASSIUM 4.4 MMOL/L (3.6-5.0); SODIUM 140 MMOL/L (135-145); TOTAL PROTEIN 7.7 GM/DL (6.4-8.2)
== END ==
LOC: LAB 09:43
PROVIDERS: ATTEND Internal Medicine Critical Care Medicine
DX: J84.9 Interstitial pulmonary disease, unspecified (principal); J43.9 Emphysema, unspecified; J84.112 Idiopathic pulmonary fibrosis; J98.11 Atelectasis; K21.9 Gastro-esophageal reflux disease without esophagitis; G47.33 Obstructive sleep apnea (adult) (pediatric); Z86.711 Personal history of pulmonary embolism
CPT/HCPCS: 36415; 80053; 85025

== ENCOUNTER → 2020-02-19 | Outpatient (CLI) | payer OTHER | LOC: LAB 16:20 | PROVIDERS: ATTEND Family Medicine | DX: A93.8 Other specified arthropod-borne viral fevers (principal); R53.83 Other fatigue; R21 Rash and other nonspecific skin eruption; M25.50 Pain in unspecified joint | CPT/HCPCS: 36415; 86618; 86666; 86668; 86757 ==

== ENCOUNTER 2020-03-27 10:53 | Outpatient (RCR) | payer OTHER ==
[~2020-03-27 10:53] MED LIST changes: -CETI10TA21 PO; +CETI10TA49 PO
[2020-03-27 11:27] LABS: ALBUMIN 3.9 GM/DL (3.2-4.5); CHLORIDE 107 MMOL/L (98-107); POTASSIUM 4.5 MMOL/L (3.6-5.0); SODIUM 141 MMOL/L (135-145)
[2020-03-27 11:28] LABS: CALCIUM 9.2 MG/DL (8.5-10.1)
[2020-03-27 11:29] LABS: GLUCOSE 100 MG/DL (70-105)
[2020-03-27 11:30] LABS: TOTAL PROTEIN 7.7 GM/DL (6.4-8.2)
[2020-03-27 11:31] LABS: BILIRUBIN,TOTAL 0.4 MG/DL (0.1-1.0); CARBON DIOXIDE 24 MMOL/L (21-32)
[2020-03-27 11:33] LABS: ALKALINE PHOSPHATASE 57 U/L (40-136); CREATININE SERUM 0.87 MG/DL (0.60-1.30); GFR ESTIMATED > 60
[2020-03-27 11:34] LABS: BASOPHILS # (AUTO) 0.1 10^3/uL (0.0-0.1); BASOPHILS % (AUTO) 1 % (0-10); EOSINOPHILS # (AUTO) 0.3 10^3/uL (0.0-0.3); EOSINOPHILS % (AUTO) 3 % (0-10); HEMATOCRIT 41 % (40-54); HEMOGLOBIN 13.8 G/DL (13.3-17.7); LYMPHOCYTES # (AUTO) 1.6 X 10^3 (1.0-4.0); LYMPHOCYTES % (AUTO) 17 % (12-44); MEAN CORPUSCULAR HEMOGLOBIN 33 PG (25-34); MEAN CORPUSCULAR HGB CONC 33 G/DL (32-36); MEAN CORPUSCULAR VOLUME 99 FL (80-99); MONOCYTES % (AUTO) 11 % (0-12); NEUTROPHILS # (AUTO) 6.5 X 10^3 (1.8-7.8); NEUTROPHILS % (AUTO) 69 % (42-75); PLATELET COUNT 393 10^3/uL (130-400); WHITE BLOOD COUNT 9.5 10^3/uL (4.3-11.0)
[2020-03-27 11:34] LABS: BUN/CREATININE RATIO 15
[2020-03-27 11:35] LABS: BILIRUBIN,DIRECT 0.2 MG/DL (0.0-0.3); BILIRUBIN,INDIRECT 0.2 MG/DL
[2020-03-27 11:36] LABS: ALANINE AMINOTRANSFERASE 21 U/L (0-55)
== END 2020-06-25 | disposition home or self-care (01) ==
LOC: LAB 10:53
PROVIDERS: ATTEND Nurse Practitioner Family
DX: J84.10 Pulmonary fibrosis, unspecified (principal); Z79.899 Other long term (current) drug therapy
CPT/HCPCS: 36415; 80053; 80076; 82248; 85025

== ENCOUNTER 2020-04-22 08:15 | Outpatient (RCR) | payer OTHER | END 2020-07-17 | disposition home or self-care (01) | LOC: EDSTATUS 08:15 → LAB 08:15 | PROVIDERS: ATTEND Internal Medicine Critical Care Medicine | DX: R19.7 Diarrhea, unspecified (principal) | CPT/HCPCS: 87324; 87449 ==

== ENCOUNTER → 2020-05-13 | Outpatient (CLI) | payer OTHER ==
--- NOTE | 2020-05-13 10:14 | Diagnostic Imaging Report ---
EXAMINATION: CT Chest without contrast. TECHNIQUE: Multiple contiguous axial images were obtained through the chest without the use of intravenous contrast. All CT scans use one or more of the following dose optimizing techniques: automated exposure control, MA and/or KvP adjustment based on a patient size and exam type, or iterative reconstruction. HISTORY: Interstitial lung disease. COMPARISON: 10/22/2019. FINDINGS: The lungs are severely emphysematous. There is unchanged peripheral fibrosis in both lungs. There is no overt honeycombing. There is a new area of peripheral consolidation in the right lower lobe with a central air bronchogram. No pleural effusion. No pneumothorax. There is no axillary or supraclavicular lymphadenopathy. There is no mediastinal lymphadenopathy. Left subclavian pacemaker is present. Heart size is normal. There are severe coronary artery calcifications. No pericardial effusion. Aorta is normal in caliber. Limited views of the upper abdomen show an unchanged liver cyst in the dome and small renal cysts. An inferior vena cava filter is present. There are no suspicious osseus lesions. IMPRESSION: 1. Stable severe emphysema and peripheral fibrosis. The pattern is indeterminate for usual interstitial pneumonia. 2. New peripheral area of consolidation in the right lower lobe with an associated air bronchogram suggestive of a small area of infection or inflammation such as organizing pneumonia in the setting of interstitial lung disease. Dictated by: Dictated on workstation # [id number]
== END ==
LOC: RT 09:13
PROVIDERS: ATTEND Internal Medicine
DX: J84.10 Pulmonary fibrosis, unspecified (principal); J84.9 Interstitial pulmonary disease, unspecified; J67.9 Hypersensitivity pneumonitis due to unspecified organic dust; M05.79 Rheumatoid arthritis with rheumatoid factor of multiple sites without organ or systems involvement
CPT/HCPCS: 36415; 71250; 82785; 86003; 94060; 94726; 94729

== ENCOUNTER 2020-06-26 10:04 | Outpatient (RCR) | payer OTHER ==
[2020-06-26 10:24] LABS: BASOPHILS # (AUTO) 0.1 10^3/uL (0.0-0.1); BASOPHILS % (AUTO) 1 % (0-10); EOSINOPHILS # (AUTO) 0.2 10^3/uL (0.0-0.3); EOSINOPHILS % (AUTO) 3 % (0-10); HEMATOCRIT 42 % (40-54); HEMOGLOBIN 13.8 g/dL (13.3-17.7); LYMPHOCYTES # (AUTO) 1.8 10^3/uL (1.0-4.0); LYMPHOCYTES % (AUTO) 24 % (12-44); MEAN CORPUSCULAR HEMOGLOBIN 32 pg (25-34); MEAN CORPUSCULAR HGB CONC 33 g/dL (32-36); MEAN CORPUSCULAR VOLUME 99 fL (80-99); MEAN PLATELET VOLUME 9.6 fL (9.0-12.2); MONOCYTES # (AUTO) 0.7 10^3/uL (0.0-1.0); MONOCYTES % (AUTO) 10 % (0-12); NEUTROPHILS # (AUTO) 4.7 10^3/uL (1.8-7.8); NEUTROPHILS % (AUTO) 62 % (42-75); PLATELET COUNT 328 10^3/uL (130-400); WHITE BLOOD COUNT 7.5 10^3/uL (4.3-11.0)
[2020-06-26 10:47] LABS: ALANINE AMINOTRANSFERASE 21 U/L (0-55); ALKALINE PHOSPHATASE 66 U/L (40-136); BILIRUBIN,DIRECT 0.2 MG/DL (0.0-0.3); BILIRUBIN,INDIRECT 0.4 MG/DL; BILIRUBIN,TOTAL 0.6 MG/DL (0.1-1.0); BUN/CREATININE RATIO 12; CALCIUM 9.3 MG/DL (8.5-10.1); CARBON DIOXIDE 25 MMOL/L (21-32); CHLORIDE 107 MMOL/L (98-107); GFR ESTIMATED > 60; GLUCOSE 102 MG/DL (70-105); POTASSIUM 4.1 MMOL/L (3.6-5.0); SODIUM 142 MMOL/L (135-145); TOTAL PROTEIN 7.6 GM/DL (6.4-8.2)
== END 2020-09-24 | disposition home or self-care (01) ==
LOC: LAB 10:04
PROVIDERS: ATTEND Nurse Practitioner Family
DX: J84.10 Pulmonary fibrosis, unspecified (principal); Z79.899 Other long term (current) drug therapy
CPT/HCPCS: 36415; 80053; 80076; 82248; 85025

== ENCOUNTER 2020-07-02 14:38 | Outpatient (RCR) | payer OTHER | END 2020-09-30 | disposition home or self-care (01) | LOC: LAB 14:38 | PROVIDERS: ATTEND Nurse Practitioner Family | DX: R19.7 Diarrhea, unspecified (principal) | CPT/HCPCS: 87015; 87045; 87046; 87328; 87329; 87899 ==

== ENCOUNTER → 2020-09-24 | Outpatient (CLI) | payer OTHER ==
[2020-09-24 08:59] LABS: ALANINE AMINOTRANSFERASE 22 U/L (0-55); ALBUMIN 3.9 GM/DL (3.2-4.5); ALKALINE PHOSPHATASE 66 U/L (40-136); BILIRUBIN,TOTAL 0.4 MG/DL (0.1-1.0); BUN/CREATININE RATIO 16; CALCIUM 9.4 MG/DL (8.5-10.1); CARBON DIOXIDE 25 MMOL/L (21-32); CHLORIDE 108 MMOL/L (98-107); CREATININE SERUM 0.97 MG/DL (0.60-1.30); GFR ESTIMATED > 60; GLUCOSE 98 MG/DL (70-105); POTASSIUM 4.1 MMOL/L (3.6-5.0); SODIUM 143 MMOL/L (135-145); TOTAL PROTEIN 7.4 GM/DL (6.4-8.2)
== END ==
LOC: LAB 08:13
PROVIDERS: ATTEND Nurse Practitioner Family
DX: J84.9 Interstitial pulmonary disease, unspecified (principal)
CPT/HCPCS: 36415; 80053

== ENCOUNTER 2020-12-22 14:48 | Outpatient (RCR) | payer OTHER ==
[~2020-12-22 14:48] MED LIST changes: +UBIQ100C2 PO; -UBIQ100C3 PO
[2020-12-22 15:30] LABS: ALBUMIN 4.1 GM/DL (3.2-4.5); BILIRUBIN,DIRECT 0.2 MG/DL (0.0-0.3); BILIRUBIN,INDIRECT 0.3 MG/DL; BILIRUBIN,TOTAL 0.5 MG/DL (0.1-1.0); TOTAL PROTEIN 7.6 GM/DL (6.4-8.2)
== END 2021-03-22 | disposition home or self-care (01) ==
LOC: LAB 14:48
PROVIDERS: ATTEND Nurse Practitioner Family
DX: J84.10 Pulmonary fibrosis, unspecified (principal); Z79.899 Other long term (current) drug therapy
CPT/HCPCS: 36415; 80076

== ENCOUNTER 2021-01-21 05:40 | Outpatient (CLI) | payer OTHER | END 2021-01-22 09:28 | disposition home or self-care (01) | LOC: PREOP 05:40 | PROVIDERS: ATTEND Internal Medicine | DX: Z01.818 Encounter for other preprocedural examination (principal) ==

== ENCOUNTER 2021-01-29 07:25 | Day surgery (SDC) | payer OTHER ==
--- NOTE | 2021-01-21 10:02 | HISTORY AND PHYSICAL ---
DATE OF SERVICE: COLONOSCOPY HISTORY AND PHYSICAL DATE OF ADMISSION: 01/29/2021 HISTORY OF PRESENT ILLNESS: The patient is a 70-year-old white male referred by Dr. Hui for surveillance colonoscopy. He has a past history of adenomatous colonic polyps, last underwent colonoscopy 5 years ago. He also reports about a year history of watery diarrhea 3 to 4 per day temporarily associated with the initiation of Ofev 150 mg b.i.d. that he has been taking for idiopathic pulmonary fibrosis. He reports that he feels that his shortness of breath has improved since he has been on the medication over the last year and he has had no other difficulty other than nonbloody diarrhea. He will take occasional Lomotil, but then will tend to have a day or two of constipation. Other than pulmonary fibrosis, which he states he has been stable on 4 liters of oxygen and Ofev is pertinent for past dilated cardiomyopathy for which he underwent defibrillator placement in 2001. He has had several battery replacements in this regard but this has had no discharges. His weight has been stable as has dyspnea on exertion with no dyspnea at rest. PAST SURGICAL HISTORY: Other than defibrillator placement, is significant for hip replacement. 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 SOCIAL HISTORY: He had a 50 plus pack year smoking history, but quit in 2003. He has occasional social alcohol intake and is retired due to disability from pulmonary fibrosis. REVIEW OF SYSTEMS: CONSTITUTIONAL: The patient denies any change in weight, night sweats, chills or fever, is fully COVID vaccinated. CARDIAC: The patient denies orthopnea, PND, pedal edema, syncope or lightheadedness. GASTROINTESTINAL: He reports no abdominal pain with this diarrhea and has noted no bright red blood per rectum or melena. There has been no change in weight. PULMONARY: The patient reports stable dyspnea on exertion, mild nonproductive cough with no wheezing. FAMILY HISTORY: He is not aware of any family history for inflammatory bowel disease or colon cancer. PHYSICAL EXAMINATION: GENERAL: Reveals a white male, on oxygen, who appeared to be in no acute distress. VITAL SIGNS: Blood pressure 116/60 and weight 222. HEENT: Unremarkable. CHEST: Surprisingly is clear to auscultation. No wheezes, rales or rhonchi noted. CARDIOVASCULAR: Reveals a regular rate and rhythm without murmur, S3 or S4. ABDOMEN: Soft, supple without mass, organomegaly or tenderness. EXTREMITIES: Reveal no cyanosis, clubbing or edema. ASSESSMENT AND PLAN: The patient is being set up for diagnostic colonoscopy due to the past history of adenomatous colonic polyps and diarrhea, which may be related to monoclonal antibody, Ofev, taken reportedly for pulmonary fibrosis, idiopathic. Prep instructions with Suprep kit were given and questions were answered. We will plan on biopsies to evaluate for microscopic colitis, even if colonoscopy reveals no visible evidence for inflammation. Prep instructions and Suprep kit were given and questions answered. Job ID: [id number] DocumentID: [id number] Dictated Date: 01/06/2021 16:44:35 Corporate Auditor Date: 01/06/2021 17:01:16 Dictated By: VIKRAM CANDELARIA MD
[~2021-01-29] VITALS: Ht 182.8 cm; Wt 107.0 kg
[2021-01-29] MEDS ORDERED: LACTATED RINGERS 1,000 ML IV ONE (07:27)
[2021-01-29] MEDS ORDERED: LACTATED RINGERS 1,000 ML IV STA (07:33)
[2021-01-29] MEDS ORDERED: PROPOFOL INJECTION 50 ML IV ONE ×2 (07:44→08:37)
[2021-01-29] MEDS ORDERED: LIDOCAINE JELLY 2% 6 ML SYRINGE MM PRN (07:45)
[2021-01-29 08:10] VITALS: BP 139/76
[2021-01-29 09:00] VITALS: BP 130/74
[2021-01-29 09:50] VITALS: BP 126/82
--- NOTE | 2021-01-29 10:02 | Anesthesia-General Post-Op ---
MAC Patient Condition Mental Status/LOC: Same as Preop Cardiovascular: Satisfactory Nausea/Vomiting: Absent Respiratory: Satisfactory Pain: Controlled Complications: Absent Post Op Complications Complications None Follow Up Care/Instructions Patient Instructions None needed. Anesthesiology Discharge Order Discharge Order Patient is doing well, no complaints, stable vital signs, no apparent adverse anesthesia problems. No complications reported per nursing. LEROY BETHEA CRNA Jan 29, 2021 10:02
--- NOTE | 2021-01-29 13:02 | Pre-Op Note & Conscious Sedat ---
Pre-Operative Progress Note H&P Reviewed The H&P was reviewed, patient examined and no changes noted. Date H&P Reviewed: Jan 29, 2021 Time H&P Reviewed: 07:40 Conscious Sedation Pre-Proced ASA Score 2 For ASA 3 and 4: Consider anesthesia and medical clearance. Also, for patients with a history of failed moderate sedation consider anesthesia. Airway Lungs Heart ASA score ASA 1: a normal healthy patient ASA 2: a patient with a mild systemic disease (mid diabetes, controlled hypertension, obesity ASA 3: a patient with a severe systemic disease that limits activity (angina, COPD, prior Myocardial infarction) ASA 4: a patient with an incapacitating disease that is a constant threat to life (CHF, renal failure) ASA 5: a moribund patient not expected to survive 24 hrs. (ruptured aneurysm) ASA 6: a declared brain- patient whose organs are being harvested. For emergent operations, add the letter E after the classification Mallampati Classification Grade 2 Sedation Plan Analgesia, Amnesia, Plan communicated to team members, Discussed options with patient/fam, Discussed risks with patient/fam The patient is an appropriate candidate to undergo the planned procedure, sedation, and anesthesia. The patient immediately re-assessed prior to indication. VIKRAM CANDELARIA MD Jan 29, 2021 13:02
--- NOTE | 2021-01-29 14:44 | OPERATIVE REPORT ---
DATE OF SERVICE: COLONOSCOPY SUMMARY INDICATION FOR THE PROCEDURE: Surveillance colonoscopy and history of colon polyps. DESCRIPTION OF PROCEDURE: The patient was placed in the left lateral decubitus position. Prior to undergoing colonoscopy, a digital rectal evaluation was performed. Anal sphincter tone was normal and no abnormalities were noted on digital inspection of the anal canal or distal rectal vault. Prostate is unremarkable to the digital inspection as was the anal canal or distal rectal vault. The colonoscope was then inserted into the rectum and under direct visualization advanced to the cecum. The cecum was identified by identification of the ileocecal valve and cecal strap. Photographic documentation was obtained. Quality of prep was fair. The patient tolerated the procedure well. FINDINGS: There was no evidence for external hemorrhoids. Several grade I internal hemorrhoid complexes were noted. The rectum was otherwise unremarkable. Moderate diverticular disease noted throughout the sigmoid colon was present without evidence for diverticulitis. No other sigmoid or colonic abnormalities were appreciated. The descending colon, transverse colon and hepatic flexure were unremarkable. Present in the proximal ascending colon, there was some scarring as well as pigmentation changes suggesting previous polypectomy site that had likely been tattooed. No evidence for recurrence was noted. A photograph was obtained. The cecum of the colon was unremarkable. ASSESSMENT: Several grade I internal hemorrhoid complexes were noted, nonthrombosed with moderate diverticular disease confined to the sigmoid colon without evidence for diverticulitis. No other significant abnormalities were noted and digital evaluation of the prostate was unremarkable as well. We would advocate consideration for repeat surveillance colonoscopy in five years provided the patient's health remains reasonable. I thank you for the referral of this pleasant gentleman. Job ID: [id number] DocumentID: [id number] Dictated Date: 01/29/2021 09:52:44 Customs Brokerage Manager Date: 01/29/2021 14:44:06 Dictated By: VIKRAM CANDELARIA MD
== END 2021-01-29 09:50 | disposition home or self-care (01) ==
LOC: ENDO 07:25
PROVIDERS: ATTEND Internal Medicine
DX: Z12.11 Encounter for screening for malignant neoplasm of colon (principal); K64.0 First degree hemorrhoids; K57.30 Diverticulosis of large intestine without perforation or abscess without bleeding; K63.89 Other specified diseases of intestine; I10 Essential (primary) hypertension; E78.5 Hyperlipidemia, unspecified; G47.33 Obstructive sleep apnea (adult) (pediatric); J44.9 Chronic obstructive pulmonary disease, unspecified; Z87.891 Personal history of nicotine dependence; J84.10 Pulmonary fibrosis, unspecified; Z99.89 Dependence on other enabling machines and devices; Z79.82 Long term (current) use of aspirin; Z79.890 Hormone replacement therapy; Z79.899 Other long term (current) drug therapy; Z85.830 Personal history of malignant neoplasm of bone; Z86.010 Personal history of colon polyps

== ENCOUNTER → 2021-03-22 | Outpatient (CLI) | payer OTHER ==
[2021-03-22 08:51] LABS: ALBUMIN 4.1 GM/DL (3.2-4.5); POTASSIUM 4.4 MMOL/L (3.6-5.0)
[2021-03-22 08:52] LABS: CALCIUM 9.2 MG/DL (8.5-10.1)
[2021-03-22 08:53] LABS: TOTAL PROTEIN 7.8 GM/DL (6.4-8.2)
[2021-03-22 08:55] LABS: BILIRUBIN,TOTAL 0.7 MG/DL (0.1-1.0)
[2021-03-22 08:57] LABS: CREATININE SERUM 1.04 MG/DL (0.60-1.30)
== END ==
LOC: LAB 08:18
PROVIDERS: ATTEND Nurse Practitioner Family
DX: J84.9 Interstitial pulmonary disease, unspecified (principal)
CPT/HCPCS: 36415; 80053

== ENCOUNTER → 2021-04-23 | Outpatient (CLI) | payer OTHER ==
[~2021-04-23] MED LIST changes: +RT-ALBUTEROL SULF 2.5 MG/3 ML PRE-MIX VIAL INH ONE
--- NOTE | 2021-04-23 15:44 | Diagnostic Imaging Report ---
EXAMINATION: CT chest without contrast. TECHNIQUE: Multiple contiguous axial images were obtained through the chest without the use of intravenous contrast. All CT scans use one or more of the following dose optimizing techniques: Automated exposure control, MA and/or KvP adjustment based on patient size and exam type or iterative reconstruction. HISTORY: FIBROSIS OF LUNG. COMPARISON: CT chest 05/13/2020. FINDINGS: Thyroid: The thyroid is normal. Mediastinum: Heart size is normal without significant pericardial effusion. Calcifications of the aorta and coronary vessels. Thoracic aorta is normal in caliber. Left-sided cardiac device is present. No suspicious lymphadenopathy. Lungs and airways: Stable background emphysematous changes of the lungs, greatest within the lung apices. There is peripheral basilar dominant reticulation and honeycombing. No pleural effusion or pneumothorax. There is mild traction bronchiectasis. Upper abdomen: A left renal cyst is present which requires no follow-up. Nonobstructing left renal calculus measuring 0.4 cm. No hydronephrosis. Musculoskeletal: Degenerative changes of the spine without suspicious osseous lesion or compression fracture. IMPRESSION: 1. Stable appearance of COPD with findings suggestive of usual interstitial pneumonia. 2. No other acute abnormality in the chest. Dictated by: Dictated on workstation # [id number]
== END ==
LOC: RT 15:15
PROVIDERS: ATTEND Nurse Practitioner Family
DX: J84.10 Pulmonary fibrosis, unspecified (principal); J44.9 Chronic obstructive pulmonary disease, unspecified
CPT/HCPCS: 71250; 94060; 94726; 94729

== ENCOUNTER 2021-11-12 04:44 | Inpatient (IN) | payer OTHER ==
[~2021-11-12] VITALS: Ht 178 cm; Wt 97.7 kg
[~2021-11-12 04:44] MED LIST changes: -RT-ALBUTEROL SULF 2.5 MG/3 ML PRE-MIX VIAL INH ONE
--- NOTE | 2021-11-12 05:19 | ED Dyspnea ---
General Chief Complaint: Respiratory Problems Stated Complaint: SOB Source of Information: Patient, Spouse Exam Limitations: No Limitations (LENIN TUCKER MED STUDENT) History of Present Illness Date Seen by Provider: Nov 12, 2021 Time Seen by Provider: 05:05 Initial Comments Patient is a 71 year old male who presents to the ED with his with complaints of nonproductive cough and increasing shortness of breath. PMH is significant for cardiomyopathy, HTN, idiopathic pulmonary fibrosis 02 dependence at 5L baseline, HLP, hypothyroidism. Reports feeling increasing SOB since yesterday even at rest. Normally wears 5L baseline. says she checked him when she got home from work last night and 02 sat's were in the 70's. Reports the cough has been worsening over the last day or two and has been nonproductive. Reports chest discomfort when taking a deep breath. reports about a week ago he had a fever of 101-102. He has not been febrile the last 4-5 days. Has normal appetite and has been eating and drinking about his usual. No change in bowel or bladder. Denies fever, chills, dizziness, dysuria, leg swelling, and headaches. Is COVID vaccinated x 2 and boosted. Received flu shot past fall. Tested negative for covid last Monday. Timing/Duration: 24 Hours Severity: Moderate Activities at Onset: None Modifying Factors: Improves With Activity Associated Symptoms: Cough, Edema, Fever, Loss of Appetite (LENIN TUCKER MED STUDENT) Initial Comments I have reviewed and agree with the medical student HPI, ROS and history. I have also performed an HPI, ROS and physical examination. (DANITA BLANCO MD) Allergies and Home Medications Allergies Coded Allergies: EDINSON Inhibitors (Verified Allergy, Unknown, 11/12/21) adhesive (Verified Allergy, Unknown, 11/12/21) warfarin (Verified Allergy, Unknown, excessive bleeding, 11/12/21) Uncoded Allergies: beta blockers (Adverse Reaction, Mild, 11/12/21) Patient Home Medication List Home Medication List Reviewed: Yes (DANITA BLANCO MD) Albuterol Sulfate (Ventolin Hfa) 18 Gm Hfa.aer.ad, 2 PUFF INH Q6H PRN for SHORTNESS OF BREATH, (Reported) Entered as Reported by: RENARD FRANZ on 11/12/21 5790 Last Action: Continued Amoxicillin (Amoxicillin) 500 Mg Capsule, 500 MG PO BID, (Reported) Entered as Reported by: RENARD FRANZ on 11/12/211253 Last Action: Held Aspirin (Aspirin EC) 81 Mg Tablet.dr, 81 MG PO DAILY, (Reported) Entered as Reported by: RENARD FRANZ on 11/12/211253 Last Action: Continued Cetirizine HCl (Zyrtec) 10 Mg Tablet, 10 MG PO HS PRN for ALLERGY SYMPTOMS, (Reported) Entered as Reported by: STAR PULIDO on 10/24/19927 Last Action: Held Fluticasone Propion/Salmeterol (Wixela 250-50 Inhub) 1 Each Blst.w.dev, 1 PUFF INH BID, (Reported) Entered as Reported by: RENARD FRANZ on 11/12/211253 Last Action: Converted Furosemide (Furosemide) 40 Mg Tablet, 40 MG PO DAILY PRN for FLUID RETENTION, (Reported) Entered as Reported by: RENARD FRANZ on 11/12/211253 Last Action: Held Irbesartan (Irbesartan) 300 Mg Tablet, 150 MG PO DAILY, (Reported) Entered as Reported by: RENARD FRANZ on 11/12/211253 Last Action: Converted Levothyroxine Sodium (Synthroid) 75 Mcg Tablet, 75 MCG PO 1200, (Reported) Entered as Reported by: RENARD FRANZ on 11/12/211253 Last Action: Reviewed Liothyronine Sodium (Liothyronine Sodium) 5 Mcg Tablet, 5 MCG PO BID, (Reported) Entered as Reported by: RENARD FRANZ on 11/12/211253 Last Action: Converted Loratadine (Loratadine) 10 Mg Tablet, 10 MG PO HS PRN for ALLERGY SYMPTOMS, (Reported) Entered as Reported by: CONCHA MUNGUIA on 09/08/16 131 Last Action: Last Taken Edited Melatonin (Melatonin) 10 Mg Tablet, 10 MG PO HS, (Reported) Entered as Reported by: RENARD FRANZ on 11/12/211253 Last Action: Held Metoprolol Tartrate (Metoprolol Tartrate) 25 Mg Tablet, 25 MG PO BID, (Reported) Entered as Reported by: STAR PULIDO on 10/24/19927 Last Action: Continued Mexiletine HCl (Mexiletine HCl) 150 Mg Cap, 150 MG PO BID, (Reported) Entered as Reported by: STAR PULIDO on 10/24/1965 Last Action: Converted Nintedanib Esylate (Ofev) 100 Mg Capsule, 100 MG PO BID, (Reported) Entered as Reported by: RENARD FRANZ on 11/12/211253 Last Action: Converted Pantoprazole Sodium (Pantoprazole Sodium) 40 Mg Tablet.dr, 40 MG PO 1200, (Reported) Entered as Reported by: RENARD FRANZ on 11/12/211253 Last Action: Continued Polymyxin B Sulf/Trimethoprim (Polymyxin B-Tmp Eye Drops) 10 Ml Drops, 1 DROP OD Q3H, (Reported) Entered as Reported by: RENARD FRANZ on 11/12/211253 Last Action: Held Potassium Chloride (K-Tab ER) 10 Meq Tablet.er, 10 MEQ PO DAILY PRN for FLUID RETENTION, (Reported) Entered as Reported by: RENARD FRANZ on 11/12/211253 Last Action: Held Rosuvastatin Calcium (Rosuvastatin Calcium) 20 Mg Tablet, 20 MG PO Q48H, (Reported) Entered as Reported by: RENARD FRANZ on 11/12/211253 Last Action: Held Tiotropium Midland (Spiriva Respimat 2.5MCG/ACTUATION) 4 Gm Mist.inhal, 2 PUFF INH 1200, (Reported) Entered as Reported by: RENARD FRANZ on 11/12/211253 Last Action: Converted Verapamil HCl (Verapamil ER) 240 Mg Tablet.er, 240 MG PO 1200, (Reported) Entered as Reported by: RENARD FRANZ on 11/12/211253 Last Action: Continued Zolpidem Tartrate (Zolpidem Tartrate) 5 Mg Tablet, 5 MG PO HS, (Reported) Entered as Reported by: RENARD FRANZ on 11/12/211253 Last Action: Continued Discontinued Medications Aspirin (Aspirin) 81 Mg Tab.chew, 81 MG PO DAILY, (Reported) Discontinued Reason: Duplicate Order Entered as Reported by: KRISTINA IGNACIO on 08/10/16 1218 Last Action: Discontinued Calcium Citrate (Calcium Citrate) 200 Mg Tablet, 200 MG PO EVERY OTHER DAY, (Reported) Discontinued Reason: Duplicate Order Entered as Reported by: STAR PULIDO on 10/24/19927 Last Action: Discontinued Cyanocobalamin (Vitamin B-12) (Vitamin B-12) 1,000 Mcg Capsule, 1,000 MCG PO DAILY, (Reported) Discontinued Reason: Duplicate Order Entered as Reported by: STAR PULIDO on 10/24/19927 Last Action: Discontinued Ferrous Sulfate (Slow Release Iron) 47.5 Mg Tablet.er, 47.5 MG PO DAILY, (Reported) Discontinued Reason: Duplicate Order Entered as Reported by: CONCHA MUNGUIA on 09/08/16 1314 Last Action: Discontinued Fluticasone/Salmeterol (Advair 250-50 Diskus) 1 Each Blst.w.dev, 1 EACH IH BID, (Reported) Discontinued Reason: Duplicate Order Entered as Reported by: KRUPA DESAI on 04/15/15 0738 Last Action: Discontinued Furosemide (Lasix) 40 Mg Tablet, 40 MG PO DAILY PRN, (Reported) Discontinued Reason: Duplicate Order Entered as Reported by: CHRISTIANO ESCUDERO on 08/03/08 194 Last Action: Discontinued Irbesartan (Avapro) 150 Mg Tablet, 150 MG PO DAILY, (Reported) Discontinued Reason: Duplicate Order Entered as Reported by: STAR PULIDO on 10/24/19919 Last Action: Discontinued Levothyroxine Sodium (Levothyroxine Sodium) 75 Mcg Tablet, 75 MCG PO DAILY@1200, (Reported) Discontinued Reason: Duplicate Order Entered as Reported by: KRUPA DESAI on 04/15/15737 Last Action: Discontinued Liothyronine Sodium (Cytomel) 5 Mcg Tablet, 5 MCG PO BID, (Reported) Discontinued Reason: Duplicate Order Entered as Reported by: CONCHA MUNGUIA on 10/21/15 1448 Last Action: Discontinued Melatonin/Pyridoxine Hcl (B6) (Melatonin 5 Mg Tablet) 1 Each Tablet, 10 MG PO HS, (Reported) Discontinued Reason: Duplicate Order Entered as Reported by: KRUPA DESAI on 09/26/12 1303 Last Action: Discontinued Mu-Vits-Min Th/Lycopene/Lutein (Centrum Silver Tablet) 1 Each Tablet, 1 TAB PO DAILY, (Reported) Discontinued Reason: Duplicate Order Entered as Reported by: KRUPA DESAI on 09/26/12 130 Last Action: Discontinued Nitroglycerin (Nitroglycerin) 0.4 Mg Tab.subl, 0.4 MG SL NEEDED PRN for CHEST PAIN (ANGINA), (Reported) Discontinued Reason: Duplicate Order Entered as Reported by: STAR PULIDO on 10/24/19927 Last Action: Discontinued Pantoprazole Sod (Protonix (Non-Formulary)) 40 Mg Tab, 40 MG PO EVERY OTHER DAY, (Reported) Discontinued Reason: Duplicate Order Entered as Reported by: CHRISTIANO ESCUDERO on 08/03/081944 Last Action: Discontinued Polyvinyl Alcohol/Povidone/Pf (Refresh Classic Eye Drops) 1 Each Droperette, 1 EACH OU HS, (Reported) Discontinued Reason: Duplicate Order Entered as Reported by: KRUPA DESAI on 04/15/1538 Last Action: Discontinued Potassium Chloride (Potassium Chloride 10 Meq Cap) 10 Meq Capsule.sa, 1-2 TAB PO DAILY PRN, (Reported) Discontinued Reason: Duplicate Order Entered as Reported by: DANITA GUILLEN on 04/17/12 1446 Last Action: Discontinued Rosuvastatin Calcium (Crestor) 10 Mg Tablet, 10 MG PO EVERY OTHER DAY, (Reported) Discontinued Reason: Duplicate Order Entered as Reported by: KRUPA DESAI on 09/26/12 1303 Last Action: Discontinued Tiotropium Midland (Spiriva) 1 Inh Aerp, 2 INH IH DAILY, (Reported) Discontinued Reason: Duplicate Order Entered as Reported by: KRUPA DESAI on 04/15/1538 Last Action: Discontinued Ubiquinol (Ubiquinol) 100 Mg Capsule, 100 MG PO DAILY IN EVENING, (Reported) Discontinued Reason: Duplicate Order Entered as Reported by: CONCHA MUNGUIA on 10/21/15 1448 Last Action: Discontinued Verapamil HCl (Calan Sr) 240 Mg Tablet.er, 240 MG PO DAILY, (Reported) Discontinued Reason: Duplicate Order Entered as Reported by: STAR PULIDO on 10/24/19921 Last Action: Discontinued Wetting Soln Gas,Hard & Soft (Systane Contacts) 12 Ml Drops, 2 DROP OU BID PRN, (Reported), (DME) Discontinued Reason: Duplicate Order Entered as Reported by: DANITA GUILLEN on 04/17/12 1447 Last Action: Discontinued Zinc (Zinc) 15 Mg Tablet, 15 MG PO 2 times weekly, (Reported) Discontinued Reason: Duplicate Order Entered as Reported by: DANITA GUILLEN on 04/17/12 1428 Last Action: Discontinued Zolpidem Tartrate (Ambien 5 Mg) 5 Mg Tab, 5 MG PO HS, (Reported) Discontinued Reason: Duplicate Order Entered as Reported by: DANITA GUILLEN on 04/17/12 1431 Last Action: Discontinued [Vitamin D4] , 1,000 UNITS PO DAILY, (Reported) Discontinued Reason: Duplicate Order Entered as Reported by: STAR PULIDO on 10/24/19 0920 Last Action: Discontinued Review of Systems Review of Systems Constitutional: No chills, No diaphoresis, No dizziness EENTM: No blurred vision, No double vision, No nose congestion Respiratory: cough (nonproductive), dyspnea on exertion, short of breath (at rest) Cardiovascular: No edema, No palpitations Gastrointestinal: No abdominal pain, No constipation, No diarrhea Genitourinary: No decreased output, No discharge, No dysuria Musculoskeletal: No back pain; joint pain (left hip); No joint swelling Skin: no symptoms reported; No change in color, No change in hair/nails Psychiatric/Neurological: No Symptoms Reported; Denies Anxiety, Denies Depressed, Denies Headache Endocrine: No Symptoms Reported; Denies Excessive Sweating, Denies Flushing Hematologic/Lymphatic: No Symptoms Reported; Denies Easy Bleeding, Denies Easy Bruising (LENIN TUCKER MED STUDENT) EENTM: ear pain (right ear), throat pain, other (slightly runny nose) Respiratory: cough (nonproductive), dyspnea on exertion; No phlegm; short of breath (at rest), wheezing Cardiovascular: no symptoms reported Gastrointestinal: no symptoms reported Genitourinary: no symptoms reported Musculoskeletal: no symptoms reported Skin: no symptoms reported (DANITA BLANCO MD) All Other Systems Reviewed Negative Unless Noted: Yes (LENIN TUCKER STUDENT) Negative Unless Noted: Yes (DANITA BLANCO MD) Past Qcfbcim-Btimlt-Kuxfob Hx Patient Social History Tobacco Use?: No (Quit smoking) Smoking Status: Former Smoker Smokeless Tobacco Frequency: Never a User Use of E-Cig and/or Vaping dev: No Use of E-Cig and/or Vaping Carl: Never a User Substance use?: No (LENIN TUCKER Care Thread STUDENT) Immunizations Up To Date Tetanus Booster (TDap): More than 5yrs PED Vaccines UTD: Yes Influenza Vaccine Up-to-Date: Yes; Up-to-Date First/Initial COVID19 Vaccinat: Yes Second COVID19 Vaccination Mike: yes COVID19 Booster (Date): yes, unsure of dates (LENIN TUCKER STUDENT) Seasonal Allergies Seasonal Allergies: Yes (LENIN TUCKER Care Thread STUDENT) Past Medical History Surgeries: Yes (hip replaced, vena cava filter, both shoulder, bilat knee, back sx x2, ) Defibrillator, Joint Replacement, Orthopedic, Pacemaker Respiratory: Yes (PULMONARY FIBROSIS) Pulmonary Embolism, Sleep Apnea, Emphysema Currently Using CPAP: Yes Currently Using BIPAP: Yes Cardiac: Yes (defib) Cardiomyopathy, High Cholesterol, Hypertension Neurological: No Reproductive Disorders: No Sexually Transmitted Disease: No HIV/AIDS: No Genitourinary: Yes Kidney Stones Gastrointestinal: No Musculoskeletal: Yes Arthritis, Rheumatoid Arthritis, Chronic Back Pain Endocrine: Yes Hypothyroidsim HEENT: Yes Cataract Loss of Vision: Denies Hearing Impairment: Hard of Hearing Cancer: Yes (OSTEO SARCOMA) What Type of Treatment Did You: Surgical Intervention Psychosocial: Yes (INSOMNIA) Sleep Difficulties Integumentary: No Blood Disorders: No Adverse Reaction/Blood Tranf: No (LENIN TUCKER Care Thread STUDENT) Physical Exam Vital Signs Vital Signs - First Documented 11/12/21 11/12/21 04:50 05:31 Temp 36.7 Pulse 90 Resp 28 B/P (MAP) 199/116 (143) Pulse Ox 95 O2 Delivery Nasal Cannula O2 Flow Rate 4.00 (DANITA BLANCO MD) Vital Signs Capillary Refill : (LENIN TUCKER Care Thread STUDENT) Height, Weight, BMI Height: 5'10.00" Weight: 234lbs. 6.0oz. 106.388706oc; 32.02 BMI Method:Stated General Appearance: No Apparent Distress, Chronically ill HEENT: PERRL/EOMI, Pharynx Normal Neck: Full Range of Motion, Normal Inspection, Non Tender Respiratory: Chest Non Tender, No Accessory Muscle Use, Crackles (fine left base crackles) Cardiovascular: No Edema, Normal Peripheral Pulses, Other (100% paced per monitor) Peripheral Pulses: 2+ Radial Pulses (R), 2+ Radial Pulses (L) Gastrointestinal: Normal Bowel Sounds, Non Tender, Soft Extremity: Normal Capillary Refill, Normal Inspection, Non Tender, No Calf Tenderness, No Pedal Edema Neurologic/Psychiatric: Alert, Oriented x3, Normal Mood/Affect Skin: Normal Color, Warm/Dry Lymphatic: No Adenopathy (Head and Neck) (LENIN TUCKER MED STUDENT) General Appearance: No Apparent Distress, WD/WN, Chronically ill HEENT: PERRL/EOMI, Pharynx Normal (no erythema; mucous membranes appear moist), Other (slight effusion behind right TM) Neck: Normal Inspection, Supple Respiratory: Chest Non Tender, No Respiratory Distress, Other (crackles left base posteriorly; no tachypnea; sats on 5L O2 PNC are about 97%. no increased work of breathing; coarse non productive cough demonstrated) Cardiovascular: Regular Rate, Rhythm, No Edema, Normal Peripheral Pulses, Other (100% paced per monitor) Gastrointestinal: Non Tender, Soft Extremity: Normal Capillary Refill, Normal Inspection, Non Tender, No Calf Tenderness, No Pedal Edema Neurologic/Psychiatric: Alert, Oriented x3, No Motor/Sensory Deficits, Normal Mood/Affect Skin: Normal Color, Warm/Dry (DANITA BLANCO MD) Focused Exam Lactate Level 11/12/21 05:35: Lactic Acid Level 1.16 (DANITA BLANCO MD) Lactic Acid Level Laboratory Tests Test 11/12/21 05:35 Lactic Acid Level 1.16 MMOL/L (0.50-2.00) (DANITA BLANCO MD) Progress/Results/Core Measures Results/Orders Lab Results Laboratory Tests Test 11/12/21 05:05 11/12/21 05:35 11/12/21 06:10 11/12/21 07:13 Range/Units White Blood Count 11.3 H 4.3-11.0 10^3/uL Red Blood Count 4.22 L 4.30-5.52 10^6/uL Hemoglobin 14.0 13.3-17.7 g/dL Hematocrit 43 40-54 % Mean Corpuscular Volume 101 H 80-99 fL Mean Corpuscular Hemoglobin 33 25-34 pg Mean Corpuscular Hemoglobin Concent 33 32-36 g/dL Red Cell Distribution Width 14.4 10.0-14.5 % Platelet Count 356 130-400 10^3/uL Mean Platelet Volume 9.3 9.0-12.2 fL Immature Granulocyte % (Auto) 2 % Neutrophils (%) (Auto) 67 42-75 % Lymphocytes (%) (Auto) 17 12-44 % Monocytes (%) (Auto) 10 0-12 % Eosinophils (%) (Auto) 3 0-10 % Basophils (%) (Auto) 1 0-10 % Neutrophils # (Auto) 7.5 1.8-7.8 10^3/uL Lymphocytes # (Auto) 2.0 1.0-4.0 10^3/uL Monocytes # (Auto) 1.1 H 0.0-1.0 10^3/uL Eosinophils # (Auto) 0.4 H 0.0-0.3 10^3/uL Basophils # (Auto) 0.1 0.0-0.1 10^3/uL Immature Granulocyte # (Auto) 0.2 H 0.0-0.1 10^3/uL Prothrombin Time 12.3 12.2-14.7 SEC INR Comment 0.9 0.8-1.4 Activated Partial Thromboplast Time 33 24-35 SEC Sodium Level 141 135-145 MMOL/L Potassium Level 4.0 3.6-5.0 MMOL/L Chloride Level 107 98-107 MMOL/L Carbon Dioxide Level 21 21-32 MMOL/L Anion Gap 13 5-14 MMOL/L Blood Urea Nitrogen 18 7-18 MG/DL Creatinine 0.96 0.60-1.30 MG/DL Estimat Glomerular Filtration Rate 84 BUN/Creatinine Ratio 19 Glucose Level 87 70-105 MG/DL Calcium Level 9.0 8.5-10.1 MG/DL Corrected Calcium 9.2 8.5-10.1 MG/DL Total Bilirubin 0.4 0.1-1.0 MG/DL Aspartate Amino Transf (AST/SGOT) 22 5-34 U/L Alanine Aminotransferase (ALT/SGPT) 28 0-55 U/L Alkaline Phosphatase 60 40-136 U/L C-Reactive Protein High Sensitivity 1.21 H 0.00-0.50 MG/DL B-Type Natriuretic Peptide 86.6 <100.0 PG/ML Total Protein 7.2 6.4-8.2 GM/DL Albumin 3.8 3.2-4.5 GM/DL Procalcitonin 0.07 <0.10 NG/ML Lactic Acid Level 1.16 0.50-2.00 MMOL/L Influenza Type A (RT-PCR) Not Detected Not Detecte Influenza Type B (RT-PCR) Not Detected Not Detecte SARS-CoV-2 RNA (RT-PCR) Not Detected Not Detecte Urine Color YELLOW Urine Clarity CLEAR Urine pH 6.0 5-9 Urine Specific Farber 1.025 H 1.016-1.022 Urine Protein NEGATIVE NEGATIVE Urine Glucose (UA) NEGATIVE NEGATIVE Urine Ketones NEGATIVE NEGATIVE Urine Nitrite NEGATIVE NEGATIVE Urine Bilirubin 1+ H NEGATIVE Urine Urobilinogen 0.2 < = 1.0 MG/DL Urine Leukocyte Esterase NEGATIVE NEGATIVE Urine RBC (Auto) NEGATIVE NEGATIVE Urine RBC NONE /HPF Urine WBC NONE /HPF Urine Squamous Epithelial Cells RARE /HPF Urine Crystals NONE /LPF Urine Bacteria NEGATIVE /HPF Urine Casts NONE /LPF Urine Mucus SMALL H /LPF Urine Culture Indicated CULTURE PENDING (DANITA BLANCO MD) Micro Results Microbiology 11/12/21 Urine Culture - Final, Complete NO GROWTH 11/12/21 Blood Culture - Preliminary, Resulted No growth 11/12/21 Blood Culture - Preliminary, Resulted Gram Positive Cocci See Comments (DANITA BLANCO MD) My Orders Orders - DANITA BLANCO MD Cbc With Automated Diff (11/12/21 05:22) Comprehensive Metabolic Panel (11/12/21 05:22) Blood Culture (11/12/21 05:22) Sputum Culture (11/12/21 05:22) Urinalysis (11/12/21 05:22) Urine Culture (11/12/21 05:22) Protime With Inr (11/12/21 05:22) Partial Thromboplastin Time (11/12/21 05:22) Chest 1 View, Ap/Pa Only (11/12/21 05:22) Ed Iv/Invasive Line Start (11/12/21 05:22) Ed Iv/Invasive Line Start (11/12/21 05:22) O2 (11/12/21 05:22) Remove Rings In Anticipation O (11/12/21 05:22) Lactic Acid Analyzer (11/12/21 05:22) Hs C Reactive Protein (11/12/21 05:22) Procalcitonin (Pct) (11/12/21 05:22) Ns Iv 500 Ml (Sodium Chloride 0.9%) (11/12/21 05:45) Acetaminophen Tablet (Tylenol Tablet) (11/12/21 06:00) Bnp Haakon (11/12/21 05:52) (DANITA BLANCO MD) Vital Signs/I&O 11/12/21 11/12/21 11/12/21 11/12/21 04:50 05:31 05:47 05:48 Temp 36.7 38.1 Pulse 90 Resp 28 B/P (MAP) 199/116 (143) Pulse Ox 95 98 O2 Delivery Nasal Cannula Nasal Cannula Nasal Cannula O2 Flow Rate 4.00 4.00 11/12/21 05:54 Temp 38.1 (DANITA BLANCO MD) Progress Progress Note : Time: 05:37 Progress Note Sepsis workup initiated. He looks good at the moment. Not tachy; not hypotensive (actually a little hypertensive at presentation). Did not exhibit any increased resp difficulty when sitting up at the side of the bed for examination. Does look like he feels bad and feels warm to the touch. Will double check to ensure we got an oral temperature on him. Will start out with gentle fluids - only a 500cc bolus - in light of history of heart failure and lung disease. (DANITA BLANCO MD) Progress Note : Time: 07:33 Progress Note Care of this patient was assumed from Dr. Blanco at shift change. Influenza and Covid screen were added and were negative. Chest x-ray showed pulmonary markings that may be persistent chronic findings, but superimposed pneumonia could be difficult to detect. History and work-up seem to be most consistent with viral illness. However, Mr. Hardin has very little reserve as he requires 5 L by nasal cannula at baseline. I discussed the situation with patient, his , and Dr. Hui. We agree that he should be admitted and placed on IV antibiotics for at least 24 hours because of his significant desaturations at home and his marginal pulmonary reserve. Cefepime and Solu-Medrol were ordered to administer in the ER. Oxygen saturations remained stable throughout his ER stay. Tessalon Perles were given for cough. Mr. Hardin desires full CODE STATUS. (ABIEL JACKMAN MD) Diagnostic Imaging Diagonstic Imaging: Xray Plain Films/CT/US/NM/MRI: chest Comments Chest x-ray viewed by me and report reviewed. See report below: NAME: CHRISTIN HARDIN [facility] REC#: [id number] PT STATUS: REG ER : 1950 PHYSICIAN: DANITA BLANCO MD ADMIT DATE: 11/12/21/ER Draft Date of Exam:11/12/21 CHEST 1 VIEW, AP/PA ONLY EXAMINATION: Chest radiograph, portable AP view. DATE: 11/12/2021 6:39 AM INDICATION: 71-year-old male, shortness of breath and fever. COMPARISON: November 06, 2019. FINDINGS: There is a left-sided cardiac assist device with leads. Leads appear intact. Heart size and mediastinal contours are unchanged. There is no identified pneumothorax. There is no large pleural effusion. There are bilateral interstitial and/or alveolar opacities. These appear largely unchanged since the comparison study. IMPRESSION: 1. Largely unchanged bilateral interstitial and/or alveolar opacities. At least some components of the interstitial opacities likely reflect chronic lung changes and interstitial lung disease. Acute alveolar consolidative process is difficult to entirely exclude. Dictated on workstation # [id number] Dict: 11/12/21 0639 Trans: 11/12/21 0658 CV [id number] Interpreted by: RODY TSEEN MD (ABIEL JACKMAN MD) Departure Communication (Admissions) Time/Spoke to Admitting Phy: 07:12 Dr. Hui (ABIEL JACKMAN MD) Impression Primary Impression: Acute febrile illness Additional Impressions: Hypoxia Pulmonary fibrosis Cough Disposition: ADMITTED INPATIENT Condition: Improved Admissions Decision to Admit Reason: Admit from ER (General) Decision to Admit/Date: Nov 12, 2021 Time/Decision to Admit Time: 07:12 (ABIEL JACKMAN MD) Departure-Patient Inst. Referrals: PATTIE HUI MD (PCP/Family) Primary Care Physician Verification and Attestation of Medical Student E/M Service A medical student performed and documented this service in my presence. I reviewed and verified all information documented by the medical student and made modifications to such information, when appropriate. I personally performed the physical exam and medical decision making. Danita Blanco, Nov 14, 2021,06:27 (DANITA BLANCO MD) LENIN TUCKER MED STUDENT Nov 12, 2021 05:19 DANITA BLANCO MD Nov 12, 2021 05:34 ABIEL JACKMAN MD Nov 12, 2021 07:38
[2021-11-12 05:32] LABS: BASOPHILS # (AUTO) 0.1 10^3/uL (0.0-0.1); BASOPHILS % (AUTO) 1 % (0-10); EOSINOPHILS # (AUTO) 0.4 10^3/uL (0.0-0.3); EOSINOPHILS % (AUTO) 3 % (0-10); HEMATOCRIT 43 % (40-54); LYMPHOCYTES % (AUTO) 17 % (12-44); MEAN CORPUSCULAR HEMOGLOBIN 33 pg (25-34); MEAN CORPUSCULAR HGB CONC 33 g/dL (32-36); MEAN CORPUSCULAR VOLUME 101 fL (80-99); MEAN PLATELET VOLUME 9.3 fL (9.0-12.2); MONOCYTES # (AUTO) 1.1 10^3/uL (0.0-1.0); MONOCYTES % (AUTO) 10 % (0-12); NEUTROPHILS # (AUTO) 7.5 10^3/uL (1.8-7.8); NEUTROPHILS % (AUTO) 67 % (42-75); PLATELET COUNT 356 10^3/uL (130-400); WHITE BLOOD COUNT 11.3 10^3/uL (4.3-11.0)
[2021-11-12 05:33] LABS: ALBUMIN 3.8 GM/DL (3.2-4.5)
[2021-11-12 05:35] LABS: TOTAL PROTEIN 7.2 GM/DL (6.4-8.2)
[2021-11-12 05:37] LABS: BILIRUBIN,TOTAL 0.4 MG/DL (0.1-1.0); INR 0.9 (0.8-1.4); PROTHROMBIN TIME PATIENT 12.3 SEC (12.2-14.7)
[2021-11-12 05:39] LABS: CREATININE SERUM 0.96 MG/DL (0.60-1.30)
[2021-11-12] MEDS ORDERED: NS IV 500 ML 500 ML IV SCH (05:45)
[2021-11-12] MEDS ORDERED: ACETAMINOPHEN 500 MG TAB (TYLENOL) PO ONE (06:00)
[2021-11-12] MEDS ORDERED: BENZONATATE 100 MG (TESSALON) CAPSULE PO STA (06:22)
--- NOTE | 2021-11-12 06:58 | Diagnostic Imaging Report ---
EXAMINATION: Chest radiograph, portable AP view. DATE: 11/12/2021 6:39 AM INDICATION: 71-year-old male, shortness of breath and fever. COMPARISON: November 06, 2019. FINDINGS: There is a left-sided cardiac assist device with leads. Leads appear intact. Heart size and mediastinal contours are unchanged. There is no identified pneumothorax. There is no large pleural effusion. There are bilateral interstitial and/or alveolar opacities. These appear largely unchanged since the comparison study. IMPRESSION: 1. Largely unchanged bilateral interstitial and/or alveolar opacities. At least some components of the interstitial opacities likely reflect chronic lung changes and interstitial lung disease. Acute alveolar consolidative process is difficult to entirely exclude. Dictated by: Dictated on workstation # [id number]
[2021-11-12] MEDS ORDERED: CEFEPIME INJECTION 2,000 MG in NS (IVPB) 50 ML IV ONE (07:15)
[2021-11-12 07:19] LABS: CLARITY,URINE CLEAR; COLOR,URINE YELLOW; GLUCOSE, URINE (UA) NEGATIVE (NEGATIVE); KETONES,URINE NEGATIVE (NEGATIVE); LEUKOCYTE ESTERASE ,URINE NEGATIVE (NEGATIVE); NITRITE,URINE NEGATIVE (NEGATIVE); PROTEIN,URINE NEGATIVE (NEGATIVE)
[2021-11-12] MEDS ORDERED: methylPREDNISolone 125 MG (Solu-MEDROL) VIAL IVP ONE (07:30)
[2021-11-12 07:32] LABS: BACTERIA,URINE NEGATIVE /HPF; SQUAMOUS EPITHELIAL CELL,UR RARE /HPF
[2021-11-12 07:33] LABS: BILIRUBIN,URINE 1+ (NEGATIVE)
--- NOTE | 2021-11-12 08:18 | History & Physical ---
History of Present Illness History of Present Illness Reason for visit/HPI ESTELA IS A 71 Y/O MALE WHO IS KNOWN TO ME FROM CLINIC. HE PRESENTED TO THE HOSPITAL DUE TO PROGRESSIVE ILLNESS OVER THE PAST 10 DAYS. HE STATES THAT HE WAS TAKING CARE OF HIS GRANDSON WHO WAS ILL WITH "A RUNNY NOSE" - THIS WAS AROUND 2- 3 WEEKS AGO. HE DOES NOT KNOW THAT HE WAS SICK WITH ANY SPECIFIC ILLNESS, AND HIS DID NOT FEEL WELL FOR A DAY OR TWO SOMETIME IN THE PAST 2 WEEKS. CHRISTIN REPORTS THAT HIS COUGH AND SHORTNESS OF BREATH STARTED TO GROW SIGNIFICANTLY BEYOND HIS USUAL OVER THE PAST 4-5 DAYS. Date of Admission Nov 12, 2021 at 07:31 Date Seen by a Provider: Nov 12, 2021 Time Seen by a Provider: 10:30 Attending Physician Pattie Hui MD Admitting Physician Pattie Hui MD Consult Allergies and Home Medications Allergies Coded Allergies: EDINSON Inhibitors (Verified Allergy, Unknown, 11/12/21) adhesive (Verified Allergy, Unknown, 11/12/21) warfarin (Verified Allergy, Unknown, excessive bleeding, 11/12/21) Uncoded Allergies: beta blockers (Adverse Reaction, Mild, 11/12/21) Patient Home Medication List Home Medication List Reviewed: Yes Aspirin (Aspirin) 81 Mg Tab.chew, 81 MG PO DAILY, (Reported) Entered as Reported by: KRISTINA IGNACIO on 08/10/16 1218 Last Action: Reviewed Calcium Citrate (Calcium Citrate) 200 Mg Tablet, 200 MG PO EVERY OTHER DAY, (Reported) Entered as Reported by: STAR PULIDO on 10/24/19927 Cetirizine HCl (Zyrtec) 10 Mg Tablet, 10 MG PO EVERY OTHER DAY, (Reported) Entered as Reported by: STAR PULIDO on 10/24/19927 Cyanocobalamin (Vitamin B-12) (Vitamin B-12) 1,000 Mcg Capsule, 1,000 MCG PO DAILY, (Reported) Entered as Reported by: STAR PULIDO on 10/24/19927 Ferrous Sulfate (Slow Release Iron) 47.5 Mg Tablet.er, 47.5 MG PO DAILY, (Reported) Entered as Reported by: CONCHA MUNGUIA on 09/08/16 1314 Fluticasone/Salmeterol (Advair 250-50 Diskus) 1 Each Blst.w.dev, 1 EACH IH BID, (Reported) Entered as Reported by: KRUPA DESAI on 04/15/15 07 Furosemide (Lasix) 40 Mg Tablet, 40 MG PO DAILY PRN, (Reported) Entered as Reported by: CHRISTIANO ESCUDERO on 08/03/081948 Irbesartan (Avapro) 150 Mg Tablet, 150 MG PO DAILY, (Reported) Entered as Reported by: STAR PULIDO on 10/24/19 09 Levothyroxine Sodium (Levothyroxine Sodium) 75 Mcg Tablet, 75 MCG PO DAILY@1200, (Reported) Entered as Reported by: KRUPA DESAI on 04/15/15737 Liothyronine Sodium (Cytomel) 5 Mcg Tablet, 5 MCG PO BID, (Reported) Entered as Reported by: CONCHA MUNGUIA on 10/21/15 1448 Loratadine (Loratadine) 10 Mg Tablet, 10 MG PO EVERY OTHER DAY, (Reported) Entered as Reported by: CONCHA MUNGUIA on 09/08/16 1314 Melatonin/Pyridoxine Hcl (B6) (Melatonin 5 Mg Tablet) 1 Each Tablet, 10 MG PO HS, (Reported) Entered as Reported by: KRUPA DESAI on 09/26/12 130 Metoprolol Tartrate (Metoprolol Tartrate) 25 Mg Tablet, 25 MG PO BID, (Reported) Entered as Reported by: STAR PULIDO on 10/24/19927 Mexiletine HCl (Mexiletine HCl) 150 Mg Cap, 150 MG PO TID, (Reported) Entered as Reported by: STAR PULIDO on 10/24/19927 Mu-Vits-Min Th/Lycopene/Lutein (Centrum Silver Tablet) 1 Each Tablet, 1 TAB PO DAILY, (Reported) Entered as Reported by: KRUPA DESAI on 09/26/12 130 Nitroglycerin (Nitroglycerin) 0.4 Mg Tab.subl, 0.4 MG SL NEEDED PRN for CHEST PAIN (ANGINA), (Reported) Entered as Reported by: STAR PULIDO on 10/24/19927 Pantoprazole Sod (Protonix (Non-Formulary)) 40 Mg Tab, 40 MG PO EVERY OTHER DAY, (Reported) Entered as Reported by: CHRISTIANO ESCUDERO on 08/03/081944 Polyvinyl Alcohol/Povidone/Pf (Refresh Classic Eye Drops) 1 Each Droperette, 1 EACH OU HS, (Reported) Entered as Reported by: KRUPA DESAI on 04/15/15 0738 Potassium Chloride (Potassium Chloride 10 Meq Cap) 10 Meq Capsule.sa, 1-2 TAB PO DAILY PRN, (Reported) Entered as Reported by: DANITA GUILLEN on 04/17/12 1446 Rosuvastatin Calcium (Crestor) 10 Mg Tablet, 10 MG PO EVERY OTHER DAY, (Reported) Entered as Reported by: KRUPA DESAI on 09/26/12 1303 Tiotropium [place] (Spiriva) 1 Inh Aerp, 2 INH IH DAILY, (Reported) Entered as Reported by: KRUPA DESAI on 04/15/15 0738 Ubiquinol (Ubiquinol) 100 Mg Capsule, 100 MG PO DAILY IN EVENING, (Reported) Entered as Reported by: CONCHA MUNGUIA on 10/21/15 1448 Verapamil HCl (Calan Sr) 240 Mg Tablet.er, 240 MG PO DAILY, (Reported) Entered as Reported by: STAR PULIDO on 10/24/19 0922 Wetting Soln Gas,Hard & Soft (Systane Contacts) 12 Ml Drops, 2 DROP OU BID PRN, (Reported), (DME) Entered as Reported by: DANITA GUILLEN on 04/17/12 1447 Zinc (Zinc) 15 Mg Tablet, 15 MG PO 2 times weekly, (Reported) Entered as Reported by: DANITA GUILLEN on 04/17/12 1428 Zolpidem Tartrate (Ambien 5 Mg) 5 Mg Tab, 5 MG PO HS, (Reported) Entered as Reported by: DANITA GUILLEN on 04/17/12 1431 [Vitamin D4] , 1,000 UNITS PO DAILY, (Reported) Entered as Reported by: STAR PULIDO on 10/24/19 0920 Past Kyicemw-Ahocjn-Psrqef Hx Patient Social History Marrital Status: Living Status: LIVES AT HOME WITH Employed/Student: retired Tobacco Use?: No (Quit smoking) Smoking Status: Former Smoker Smokeless Tobacco Frequency: Never a User Use of E-Cig and/or Vaping dev: No Use of E-Cig and/or Vaping Carl: Never a User Substance use?: No Alcohol Use?: Yes Alcohol Frequency: Several times a month Pt feels they are or have been: No Immunizations Up To Date Date of Influenza Vaccine: May 28, 2020 First/Initial COVID19 Vaccinat: Yes Second COVID19 Vaccination Mike: yes PED Vaccines UTD: Yes Date of Pneumonia Vaccine: May 28, 2018 Seasonal Allergies Seasonal Allergies: Yes Current Status Primary Language: Canadian Preferred Spoken Language: Canadian Implanted or Applied Medical D: CPAP Past Medical History Surgeries: Defibrillator, Joint Replacement, Orthopedic, Pacemaker Pulmonary Embolism, Sleep Apnea, Pulmonary Fibrosis, Emphysema Currently Using CPAP: Yes Currently Using BIPAP: Yes Cardiomyopathy, High Cholesterol, Hypertension Sexually Transmitted Disease: No HIV/AIDS: No Kidney Stones Arthritis, Rheumatoid Arthritis, Chronic Back Pain Hypothyroidsim Cataract Loss of Vision: Denies Hearing Impairment: Hard of Hearing What Type of Treatment Did You: Surgical Intervention Sleep Difficulties Blood Disorders: No Adverse Reaction/Blood Tranf: No Family Medical History Reviewed and Corrections made Heart Disease, Hypertension Review of Systems Constitutional: No chills, No diaphoresis, No dizziness, No fever; malaise, weakness EENTM: No hoarseness, No throat pain Respiratory: cough, dyspnea on exertion; No hemoptysis; orthopnea; No phlegm; short of breath, wheezing Cardiovascular: No chest pain, No palpitations Gastrointestinal: No abdominal pain, No constipation, No diarrhea, No nausea, No vomiting Genitourinary: no symptoms reported Musculoskeletal: back pain (CHRONIC), muscle weakness Skin: no symptoms reported; No rash Psychiatric/Neurological: Denies Anxiety, Denies Depressed, Denies Weakness All Other Systems Reviewed Negative Unless Noted: Yes Physical Exam Vital Signs Vital Signs - First Documented 11/12/21 11/12/21 04:50 05:31 Temp 36.7 Pulse 90 Resp 28 B/P (MAP) 199/116 (143) Pulse Ox 95 O2 Delivery Nasal Cannula O2 Flow Rate 4.00 Capillary Refill : Less Than 3 Seconds Height, Weight, BMI Height: 5'10.00" Weight: 234lbs. 6.0oz. 106.888075wb; 30.00 BMI Method:Stated General Appearance: No Apparent Distress, Mild Distress (DUE TO SHORTNESS OF BREATH) Eyes: Bilateral Eye Normal Inspection, Bilateral Eye PERRL, Bilateral Eye EOMI HEENT: PERRL/EOMI, Pharynx Normal Neck: Full Range of Motion, Non Tender, Supple Respiratory: Chest Non Tender, Crackles (IN BASES), Decreased Breath Sounds, Rhonci Cardiovascular: Regular Rate, Rhythm, Normal Peripheral Pulses Gastrointestinal: Normal Bowel Sounds, No Organomegaly, No Pulsatile Mass, Non Tender, Soft Rectal: Deferred Extremity: Non Tender, No Calf Tenderness, No Pedal Edema, Other (CLUBBING OF FINGERS) Neurologic/Psychiatric: Alert, Oriented x3, No Motor/Sensory Deficits, Normal Mood/Affect, harness tier II-XII Norm as Tested Skin: Normal Color, Warm/Dry Lymphatic: No Adenopathy Assessment/Plan Assessment and Plan ACUTE DYSPNEA HYPOXEMIA CHRONIC PULMONARY FIBROSIS PNEUMONIA UPPER RESPIRATORY INFECTION HYPERTENSION HYPOTHYROIDISM ESOPHAGEAL REFLUX HYPERLIPIDEMIA INSOMNIA ACUTE DYSPNEA WITH CHRONIC PULMONARY FIBROSIS AND SUSPECTED PNEUMONIA - MAY BE VIRAL PNEUMONIA BASED ON EXPOSURE TO LIKELY VIRAL INFECTION FROM GRANDCHILD - WILL CHECK VIRAL PANEL. - CONTINUE WITH STEROID AND IV ANTIBIOTICS AT THIS TIME (ROCEPHIN AND AZITHROMYCIN) - CHECK CT OF CHEST TODAY HYPERTENSION - RESUME HOME REGIMEN ONCE MEDICATIONS RECONCILED. HYPOTHYROIDISM - RESUME LEVOTHYROXINE AND LIIOTHYROXINE. ESOPHAGEAL REFLUX - RESUME PPI THERAPY HYPERLIPIDEMIA - HOLD STATIN FOR NOW INSOMNIA - MELATONIN RX - STAFF TO ALERT PHYSICIAN IF PT IS UNABLE TO SLEEP . DVT PROPHYALXIS WITH LOVENOX AND SCD'S GI PROPHYLAXIS WITH PPI AND PROBIOTICS Admission Diagnosis ACUTE DYSPNEA ACUTE HYPOXEMIA CHRONIC PULMONARY FIBROSIS PNEUMONIA UPPER RESPIRATORY INFECTION HYPERTENSION HYPOTHYROIDISM ESOPHAGEAL REFLUX HYPERLIPIDEMIA INSOMNIA Admission Status: Inpatient Order (span 2 midnights) Reason for Inpatient Admission: INPATIENT ADMISSION FOR PNEUMONIA, HYPOXEMIA, WILL REQUIRE AT LEAST 2 MIDNIGHTS IN THE HOSPITAL DUE TO HIS ALREADY BASELINE DECOMPENSATED PULMONARY STATUS. PATTIE HUI MD Nov 12, 2021 08:18
[2021-11-12 08:59] VITALS: BP 144/80
[2021-11-12] MEDS ORDERED: ACETAMINOPHEN 500 MG TAB (TYLENOL) PO PRN (09:30)
[2021-11-12] MEDS ORDERED: AZITHROMYCIN 500 MG/NS 250 ML IVPB IV ONE ×2 (09:30)
[2021-11-12] MEDS ORDERED: ONDANSETRON 4 MG/2 ML (SDV) Z0FRAN IV PRN (09:45)
[2021-11-12] MEDS ORDERED: BENZONATATE 100 MG (TESSALON) CAPSULE PO PRN (09:45)
[2021-11-12] MEDS ORDERED: CATHETER FLUSH 10 ML SYR IVP PRN (09:45)
[2021-11-12] MEDS: LACTATED RINGERS 1,000 ML IV SCH ×2 (09:56→22:58)
[2021-11-12] MEDS: RT-ALBUTEROL/IPRATROPIUM 3 ML (DUONEB) VIAL INH SCH ×4 (10:16→22:45)
[2021-11-12 12:00] VITALS: BP 146/75
[2021-11-12] MEDS ORDERED: PLTR10OP OD (12:54)
[2021-11-12] MEDS ORDERED: POTA10TA PO (12:54)
[2021-11-12] MEDS ORDERED: ALBU18HF2 INH (12:54)
[2021-11-12] MEDS ORDERED: MELA10TA2 PO (12:54)
[2021-11-12] MEDS ORDERED: FLUT1BLS9 INH (12:54)
[2021-11-12] MEDS ORDERED: AMOX500C2 PO (12:54)
[2021-11-12] MEDS ORDERED: FURO40TA4 PO (12:54)
[2021-11-12] MEDS ORDERED: PANT40TA52 PO (12:54)
[2021-11-12] MEDS ORDERED: VERA240T90 PO (12:54)
[2021-11-12] MEDS ORDERED: NINT100C PO (12:54)
[2021-11-12] MEDS ORDERED: ZOLP5TAB7 PO (12:54)
[2021-11-12] MEDS ORDERED: ROSU20TA32 PO (12:54)
[2021-11-12] MEDS ORDERED: ASPI-1238 PO (12:54)
[2021-11-12] MEDS ORDERED: LIOT5TAB10 PO (12:54)
[2021-11-12] MEDS ORDERED: IRBE300T17 PO (12:54)
[2021-11-12] MEDS ORDERED: TIOT4MIS2 INH (12:54)
[2021-11-12] MEDS ORDERED: LEVO75TA PO (12:54)
[2021-11-12] MEDS ORDERED: PANTOPRAZOLE 40 MG (PROTONIX) TAB PO ONE (13:00)
[2021-11-12] MEDS ORDERED: RT-ALBUTEROL SULF 2.5 MG/3 ML PRE-MIX VIAL INH PRN (13:15)
[2021-11-12] MEDS: ENOXAPARIN 40 MG/0.4 ML (LOVENOX) SYR SC SCH (13:54)
[2021-11-12] MEDS: CEFEPIME 1,000 MG/NS 50 ML IVPB IV SCH ×4 (13:54→20:10)
--- NOTE | 2021-11-12 13:54 | Diagnostic Imaging Report ---
PROCEDURE: CT chest without contrast. TECHNIQUE: Multiple contiguous axial images were obtained through the chest without the use of intravenous contrast. Auto Exposure Controls were utilized during the CT exam to meet ALARA standards for radiation dose reduction. INDICATION: Pulmonary fibrosis with difficulty breathing. COMPARISON: Exam compared with study of 04/23/2021. FINDINGS: Severe emphysematous air trapping, symmetric. Largely peripheral subpleural fibrosis and heterogeneous air trapping, unchanged. No blebs, bullous disease, or delores honeycombing. There is no tracheobronchomegaly. No associated acute infiltrate. No findings of progression for this chronic disease process. Atherosclerotic aorta is nonaneurysmal. Upper limits heart size, stable. There is a small hiatal hernia, chronic. IMPRESSION: Stable largely subpleural five-lobe interstitial fibrosis with no acute abnormality superimposed. No significant disease progression. Dictated by: Dictated on workstation # [id number]
[2021-11-12] MEDS: methylPREDNISolone 40 MG/ML (Solu-MEDROL) VIAL IV SCH (15:44)
[2021-11-12] MEDS: VERAPAMIL SR 240 MG (CALAN SR) TAB PO SCH (15:44)
[2021-11-12 15:54] VITALS: BP 173/81
[2021-11-12] MEDS: RT--FLUTICASONE/SALMETEROL 232-14 (AIRDUO RespiCLICK) IH SCH (18:57)
[2021-11-12] MEDS: MEXILETINE 150 MG (MEXITIL) CAPSULE PO SCH (20:10)
[2021-11-12] MEDS: meTOprolol TARTRATE 25 MG (LOPRESSOR) TABLET PO SCH (20:10)
[2021-11-12] MEDS: ZOLPIDEM 5 MG (AMBIEN) TAB PO SCH (20:11)
[2021-11-12] MEDS: MELATONIN 3 MG TABLET PO SCH (20:11)
[2021-11-12 20:50] VITALS: BP 155/81
[2021-11-12] MEDS ORDERED: NINTEDANIB ESYLATE 100 MG PO SCH (21:00)
[2021-11-12] MEDS ORDERED: NON-FORMULARY MEDICATION 1 EA EA (Liothyronine Sodium 5 MCG) PO SCH (21:00)
[2021-11-12 23:01] VITALS: BP 146/79
[2021-11-13] MEDS: RT-ALBUTEROL/IPRATROPIUM 3 ML (DUONEB) VIAL INH SCH ×6 (02:40→22:12)
[2021-11-13] MEDS: CEFEPIME 1,000 MG/NS 50 ML IVPB IV SCH ×8 (03:54→20:25)
[2021-11-13 04:00] VITALS: BP 137/81
[2021-11-13] MEDS: LEVOTHYROXINE 75 MCG (LEVOTHROID) TABLET PO SCH (05:35)
[2021-11-13 06:18] LABS: HEMATOCRIT 39 % (40-54); HEMOGLOBIN 12.9 g/dL (13.3-17.7); MEAN CORPUSCULAR HEMOGLOBIN 33 pg (25-34); MEAN CORPUSCULAR HGB CONC 33 g/dL (32-36); MEAN CORPUSCULAR VOLUME 100 fL (80-99); MEAN PLATELET VOLUME 9.7 fL (9.0-12.2); PLATELET COUNT 345 10^3/uL (130-400); WHITE BLOOD COUNT 14.4 10^3/uL (4.3-11.0)
[2021-11-13] MEDS: methylPREDNISolone 40 MG/ML (Solu-MEDROL) VIAL IV SCH ×2 (06:25→15:05)
[2021-11-13 06:28] LABS: ALBUMIN 3.3 GM/DL (3.2-4.5); POTASSIUM 4.4 MMOL/L (3.6-5.0)
[2021-11-13 06:30] LABS: TOTAL PROTEIN 6.5 GM/DL (6.4-8.2)
[2021-11-13 06:32] LABS: BILIRUBIN,TOTAL 0.3 MG/DL (0.1-1.0)
[2021-11-13 06:34] LABS: CREATININE SERUM 0.78 MG/DL (0.60-1.30)
[2021-11-13 07:34] VITALS: BP 153/80
[2021-11-13] MEDS: UMECLIDINIUM BROMIDE (INCRUSE ELLIPTA) 7'S IH SCH (07:35)
[2021-11-13] MEDS: RT--FLUTICASONE/SALMETEROL 232-14 (AIRDUO RespiCLICK) IH SCH ×2 (07:38→22:12)
--- NOTE | 2021-11-13 08:08 | Progress Note ---
Subjective Subjective Date Seen by Provider: Nov 13, 2021 Time Seen by Provider: 08:15 PT IS A 71 Y/O MALE WHO IS ADMITTED FOR DYSPNEA, AND URI SYMPTOMS - PT HAS POOR RESERVE AND HAS HX OF PULMONARY FIBROSIS. PATIENT REPORTS THAT HE IS FEELING A LITTLE BETTER TODAY - BUT HAS A COUGH AND WOULD LIKE SOME MEDICATION FOR THE COUGH. HE DENIES CHEST PAIN, ABDOMINAL PAIN, NAUSEA. Review of Systems General: No Chills; Fatigue; No Malaise HEENT: No Head Aches, No Visual Changes Pulmonary: Dyspnea, Cough Cardiovascular: No: Chest Pain, Palpitations Gastrointestinal: No: Nausea, Abdominal Pain Genitourinary: No Dysuria Neurological: No: Weakness, Confusion All Other Systems Reviewed All Other Systems Reviewed: Yes Objective Exam Vital Signs Vital Signs Date Time Temp Pulse Resp B/P (MAP) Pulse Ox O2 Delivery O2 Flow Rate FiO2 11/13/21 07:35 94 Nasal Cannula 5.00 11/13/21 07:34 36.7 76 20 153/80 (104) 94 Nasal Cannula 5.00 11/13/21 04:00 36.6 72 20 137/81 (99) 94 NIV CPAP 4.00 11/13/21 02:40 95 NIV CPAP 5.00 11/13/21 01:00 73 11/12/21 23:01 36.3 82 20 146/79 (101) 95 Nasal Cannula 5.00 11/12/21 22:45 96 Nasal Cannula 5.00 11/12/21 20:50 35.9 97 22 155/81 (105) 96 Nasal Cannula 5.00 11/12/21 20:10 Nasal Cannula 5.00 11/12/21 19:00 95 11/12/21 18:57 96 Nasal Cannula 5.00 11/12/21 15:54 36.7 89 20 173/81 (111) 95 Nasal Cannula 5.00 11/12/21 15:02 95 Nasal Cannula 5.00 11/12/21 13:00 92 11/12/21 12:00 36.8 98 22 146/75 (98) 92 Nasal Cannula 5.00 11/12/21 10:51 Nasal Cannula 5.00 11/12/21 10:31 95 Nasal Cannula 5.00 11/12/21 09:19 73 11/12/21 08:59 37.0 71 22 144/80 (101) 96 Nasal Cannula 5.00 11/12/21 08:23 38.1 90 28 199/116 98 Nasal Cannula 4.00 4.00 I & O 11/13/21 07:00 Intake Total 3230 ml Balance 3230 ml General Appearance: No Apparent Distress, Mild Distress (DUE TO SHORTNESS OF BREATH) Eyes: Bilateral Eye Normal Inspection, Bilateral Eye PERRL, Bilateral Eye EOMI HEENT: PERRL/EOMI, Pharynx Normal Neck: Full Range of Motion, Non Tender, Supple Respiratory: Chest Non Tender, Crackles (IN BASES), Decreased Breath Sounds, Rhonci Cardiovascular: Regular Rate, Rhythm, Normal Peripheral Pulses Gastrointestinal: Normal Bowel Sounds, No Organomegaly, No Pulsatile Mass, Non Tender, Soft Rectal: Deferred Extremity: Non Tender, No Calf Tenderness, No Pedal Edema, Other (CLUBBING OF FINGERS) Neurologic/Psychiatric: Alert, Oriented x3, No Motor/Sensory Deficits, Normal Mood/Affect, supervisor 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 plant II-XII Norm as Tested Skin: Normal Color, Warm/Dry Lymphatic: No Adenopathy Results Lab Laboratory Tests 11/12/21 20:18: 11/13/21 05:06: White Blood Count 14.4H, Red Blood Count 3.88L, Hemoglobin 12.9L, Hematocrit 39L , Mean Corpuscular Volume 100H, Mean Corpuscular Hemoglobin 33, Mean Corpuscular Hemoglobin Concent 33, Red Cell Distribution Width 14.1, Platelet Count 345, Mean Platelet Volume 9.7, Sodium Level 137, Potassium Level 4.4, Chloride Level 106, Carbon Dioxide Level 19L, Anion Gap 12, Blood Urea Nitrogen 15, Creatinine 0.78, Estimat Glomerular Filtration Rate 95, BUN/Creatinine Ratio 19, Glucose Level 136H, Calcium Level 9.0, Corrected Calcium 9.6, Total Bilirubin 0.3, Aspartate Amino Transf (AST/SGOT) 18, Alanine Aminotransferase (ALT/SGPT) 18, Alkaline Phosphatase 51, Total Protein 6.5, Albumin 3.3 Assessment/Plan Assessment/Plan Admission Dx ACUTE DYSPNEA ACUTE HYPOXEMIA CHRONIC PULMONARY FIBROSIS PNEUMONIA UPPER RESPIRATORY INFECTION HYPERTENSION HYPOTHYROIDISM ESOPHAGEAL REFLUX HYPERLIPIDEMIA INSOMNIA Assessment and Plan ACUTE DYSPNEA HYPOXEMIA CHRONIC PULMONARY FIBROSIS PNEUMONIA UPPER RESPIRATORY INFECTION HYPERTENSION HYPOTHYROIDISM ESOPHAGEAL REFLUX HYPERLIPIDEMIA INSOMNIA ACUTE DYSPNEA WITH CHRONIC PULMONARY FIBROSIS AND SUSPECTED PNEUMONIA - MAY BE VIRAL PNEUMONIA BASED ON EXPOSURE TO LIKELY VIRAL INFECTION FROM GRANDCHILD - VIRAL PANEL PENDING - CONTINUE WITH STEROID AND IV ANTIBIOTICS AT THIS TIME (ROCEPHIN AND AZITHROMYCIN) - CHECKED CT OF CHEST RESULTS FOLLOWS: Date of Exam:11/12/21 CT CHEST WO COMPARISON: Exam compared with study of 04/23/2021. FINDINGS: Severe emphysematous air trapping, symmetric. Largely peripheral subpleural fibrosis and heterogeneous air trapping, unchanged. No blebs, bullous disease, or delores honeycombing. There is no tracheobronchomegaly. No associated acute infiltrate. No findings of progression for this chronic disease process. Atherosclerotic aorta is nonaneurysmal. Upper limits heart size, stable. There is a small hiatal hernia, chronic. IMPRESSION: Stable largely subpleural five-lobe interstitial fibrosis with no acute abnormality superimposed. No significant disease progression. HYPERTENSION - RESUMED HOME REGIMEN ONCE MEDICATIONS RECONCILED. HYPOTHYROIDISM - RESUMED LEVOTHYROXINE AND LIIOTHYROXINE. ESOPHAGEAL REFLUX - RESUME PPI THERAPY HYPERLIPIDEMIA - HOLD STATIN FOR NOW INSOMNIA - MELATONIN RX - STAFF TO ALERT PHYSICIAN IF PT IS UNABLE TO SLEEP . DVT PROPHYALXIS WITH LOVENOX AND SCD'S GI PROPHYLAXIS WITH PPI AND PROBIOTICS Admission Dx ACUTE DYSPNEA ACUTE HYPOXEMIA CHRONIC PULMONARY FIBROSIS PNEUMONIA UPPER RESPIRATORY INFECTION HYPERTENSION HYPOTHYROIDISM ESOPHAGEAL REFLUX HYPERLIPIDEMIA INSOMNIA Clinical Quality Measures Admission Status Admission Dx ACUTE DYSPNEA ACUTE HYPOXEMIA CHRONIC PULMONARY FIBROSIS PNEUMONIA UPPER RESPIRATORY INFECTION HYPERTENSION HYPOTHYROIDISM ESOPHAGEAL REFLUX HYPERLIPIDEMIA INSOMNIA PATTIE GARCÍA MD Nov 13, 2021 08:08
[2021-11-13] MEDS ORDERED: ASPIRIN E.C. 81 MG (ECOTRIN) TAB PO SCH (09:00)
[2021-11-13] MEDS ORDERED: PANTOPRAZOLE 40 MG (PROTONIX) TAB PO SCH ×2 (09:00→12:00)
[2021-11-13] MEDS: AZITHROMYCIN 250 MG/NS 250 ML IVPB IV SCH ×2 (09:03)
[2021-11-13] MEDS: LOSARTAN 50 MG (COZAAR) TAB PO SCH (09:04)
[2021-11-13] MEDS: MEXILETINE 150 MG (MEXITIL) CAPSULE PO SCH ×2 (09:04→20:25)
[2021-11-13] MEDS: meTOprolol TARTRATE 25 MG (LOPRESSOR) TABLET PO SCH ×2 (09:04→20:26)
[2021-11-13] MEDS: ASPIRIN E.C. 81 MG (ECOTRIN) TAB PO SCH (09:04)
[2021-11-13] MEDS: PROMETHAZINE/ CODEINE SYRUP 5 ML UDC PO PRN ×2 (11:01→23:03)
[2021-11-13 11:31] VITALS: BP 145/88
[2021-11-13] MEDS: VERAPAMIL SR 240 MG (CALAN SR) TAB PO SCH (13:31)
[2021-11-13] MEDS: ENOXAPARIN 40 MG/0.4 ML (LOVENOX) SYR SC SCH (13:32)
[2021-11-13] MEDS: LACTATED RINGERS 1,000 ML IV SCH ×2 (13:33→16:53)
[2021-11-13 15:58] VITALS: BP 153/81
[2021-11-13 20:00] VITALS: BP 146/73
[2021-11-13] MEDS: MELATONIN 3 MG TABLET PO SCH (23:00)
[2021-11-13] MEDS: ZOLPIDEM 5 MG (AMBIEN) TAB PO SCH (23:00)
[2021-11-14] VITALS: BP 137/79
[2021-11-14] MEDS: LACTATED RINGERS 1,000 ML IV SCH ×2 (01:30→06:33)
[2021-11-14] MEDS: CEFEPIME 1,000 MG/NS 50 ML IVPB IV SCH ×4 (02:15→08:09)
[2021-11-14] MEDS: RT-ALBUTEROL/IPRATROPIUM 3 ML (DUONEB) VIAL INH SCH ×2 (02:19→07:29)
[2021-11-14 04:00] VITALS: BP 155/80
[2021-11-14] MEDS: methylPREDNISolone 40 MG/ML (Solu-MEDROL) VIAL IV SCH (06:30)
[2021-11-14] MEDS: LEVOTHYROXINE 75 MCG (LEVOTHROID) TABLET PO SCH (06:30)
[2021-11-14] MEDS: PROMETHAZINE/ CODEINE SYRUP 5 ML UDC PO PRN (06:33)
[2021-11-14 07:30] VITALS: BP 142/77
[2021-11-14] MEDS: RT--FLUTICASONE/SALMETEROL 232-14 (AIRDUO RespiCLICK) IH SCH (07:30)
[2021-11-14] MEDS: UMECLIDINIUM BROMIDE (INCRUSE ELLIPTA) 7'S IH SCH (07:30)
[2021-11-14] MEDS: meTOprolol TARTRATE 25 MG (LOPRESSOR) TABLET PO SCH (08:11)
[2021-11-14] MEDS: MEXILETINE 150 MG (MEXITIL) CAPSULE PO SCH (08:11)
[2021-11-14] MEDS: LOSARTAN 50 MG (COZAAR) TAB PO SCH (08:11)
[2021-11-14] MEDS: ASPIRIN E.C. 81 MG (ECOTRIN) TAB PO SCH (08:11)
[2021-11-14] MEDS: AZITHROMYCIN 250 MG/NS 250 ML IVPB IV SCH ×2 (08:24)
[2021-11-14 11:44] VITALS: BP 154/93
[2021-11-14] MEDS ORDERED: SENN-145 PO (12:08)
[2021-11-14] MEDS ORDERED: PROM5SYR PO (12:08)
[2021-11-14] MEDS ORDERED: LEVO500T81 PO (12:08)
--- NOTE | 2021-11-14 12:10 | Discharge Inst-Simple/Standard ---
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 as Tolerated: Yes Discharge Diet: Regular Diet Health Concerns: pulmonary fibrosis chronic cough weakness Return to The Hospital For: any concern for worsening shortness of breath, dyspnea, or other life threatening illness or injury Medication List: Active Scripts Active Senna S Tablet (Sennosides/Docusate Sodium) 1 Each Tablet 1 Each PO BID Prometh-Codein 6.25-10 mg/5 ml (Promethazine HCl/Codeine) 5 Ml Syrup 5 Ml PO Q4H PRN Levofloxacin 500 Mg Tablet 500 Mg PO DAILY Reported Melatonin 10 Mg Tablet 10 Mg PO HS Pantoprazole Sodium 40 Mg Tablet.dr 40 Mg PO 1200 K-Tab ER (Potassium Chloride) 10 Meq Tablet.er 10 Meq PO DAILY PRN Furosemide 40 Mg Tablet 40 Mg PO DAILY PRN Zolpidem Tartrate 5 Mg Tablet 5 Mg PO HS Liothyronine Sodium 5 Mcg Tablet 5 Mcg PO BID Ventolin Hfa (Albuterol Sulfate) 18 Gm Hfa.aer.ad 2 Puff INH Q6H PRN Spiriva Respimat 2.5MCG/ACTUATION (Tiotropium [place]) 4 Gm Mist.inhal 2 Puff INH 1200 Rosuvastatin Calcium 20 Mg Tablet 20 Mg PO Q48H Wixela 250-50 Inhub (Fluticasone Propion/Salmeterol) 1 Each Blst.w.dev 1 Puff INH BID Irbesartan 300 Mg Tablet 150 Mg PO DAILY TAKES OF A 300MG TAB Aspirin EC (Aspirin) 81 Mg Tablet.dr 81 Mg PO DAILY Synthroid (Levothyroxine Sodium) 75 Mcg Tablet 75 Mcg PO 1200 Verapamil ER (Verapamil HCl) 240 Mg Tablet.er 240 Mg PO 1200 Polymyxin B-Tmp Eye Drops (Polymyxin B Sulf/Trimethoprim) 10 Ml Drops 1 Drop OD Q3H USE WHILE AWAKE FOR 7 TO 10 DAYS Ofev (Nintedanib Esylate) 100 Mg Capsule 100 Mg PO BID Amoxicillin 500 Mg Capsule 500 Mg PO BID FILLED 11-06-2021 #20/10 DAY SUPPLY Metoprolol Tartrate 25 Mg Tablet 25 Mg PO BID Zyrtec (Cetirizine HCl) 10 Mg Tablet 10 Mg PO HS PRN Mexiletine HCl 150 Mg Cap 150 Mg PO BID Loratadine 10 Mg Tablet 10 Mg PO HS PRN My orders: Orders - PATTIE GARCÍA MD Attending Discharge Inpt/Inobs (11/14/21 12:04) PATTIE GARCÍA MD Nov 14, 2021 12:10
--- NOTE | 2021-11-14 12:11 | Discharge Summary ---
Diagnosis/Chief Complaint Date of Admission Nov 12, 2021 at 12:52 Date of Discharge Discharge Date: Nov 14, 2021 Discharge Time: 1300 Reason Hospital Visit PT IS A 71 Y/O MALE WHO IS KNOWN TO ME FROM CLINIC. HE PRESENTED TO THE HOSPITAL DUE TO PROGRESSIVE ILLNESS OVER THE PAST 10 DAYS. HE STATES THAT HE WAS TAKING CARE OF HIS GRANDSON WHO WAS ILL WITH "A RUNNY NOSE" - THIS WAS AROUND 2- 3 WEEKS AGO. HE DOES NOT KNOW THAT HE WAS SICK WITH ANY SPECIFIC ILLNESS, AND HIS DID NOT FEEL WELL FOR A DAY OR TWO SOMETIME IN THE PAST 2 WEEKS. CHRISTIN REPORTS THAT HIS COUGH AND SHORTNESS OF BREATH STARTED TO GROW SIGNIFICANTLY BEYOND HIS USUAL OVER THE PAST 4-5 DAYS. Discharge Summary Discharge Physical Examination Allergies: Coded Allergies: EDINSON Inhibitors (Verified Allergy, Unknown, 11/12/21) adhesive (Verified Allergy, Unknown, 11/12/21) warfarin (Verified Allergy, Unknown, excessive bleeding, 11/12/21) Uncoded Allergies: beta blockers (Adverse Reaction, Mild, 11/12/21) Vitals & I&Os Vital Signs Date Time Temp Pulse Resp B/P (MAP) Pulse Ox O2 Delivery O2 Flow Rate FiO2 11/14/21 11:44 36.5 77 18 154/93 (113) 94 Nasal Cannula 5.00 Discharge Instructions to patient/family Please see electronic discharge instructions given to patient. Discharge Medications Reviewed and agree with Discharge Medication list on patient's Discharge Instruction sheet PATTIE GARCÍA MD Nov 14, 2021 12:11
[2021-11-15 12:27] LABS: PARAINFLU 1 PCR Not Detected (Not Detected); PARAINFLU 2 PCR Not Detected (Not Detected); RSV PCR TEST Not Detected (Not Detected)
== END 2021-11-14 12:30 | disposition home or self-care (01) | DRG 194 ==
LOC: EDUNIT# 04:44 → ER 04:46 → 4TH 07:31 → OBSVTOIN 12:52
PROVIDERS: ADMIT Family Medicine; ATTEND Family Medicine
DX: J18.9 Pneumonia, unspecified organism (principal); I42.9 Cardiomyopathy, unspecified; I10 Essential (primary) hypertension; E03.9 Hypothyroidism, unspecified; K21.9 Gastro-esophageal reflux disease without esophagitis; G47.00 Insomnia, unspecified; R09.02 Hypoxemia; J06.9 Acute upper respiratory infection, unspecified; J84.112 Idiopathic pulmonary fibrosis; Z99.81 Dependence on supplemental oxygen; Z20.822 Contact with and (suspected) exposure to COVID-19; Z79.82 Long term (current) use of aspirin; Z79.899 Other long term (current) drug therapy; Z87.891 Personal history of nicotine dependence; Z86.711 Personal history of pulmonary embolism; J43.9 Emphysema, unspecified; Z95.810 Presence of automatic (implantable) cardiac defibrillator; E78.00 Pure hypercholesterolemia, unspecified; M06.9 Rheumatoid arthritis, unspecified; G89.29 Other chronic pain; M54.9 Dorsalgia, unspecified
CPT/HCPCS: 36415; 71045; 71250; 80053; 81000; 83605; 83880; 84145; 85025; 85027; 85610; 85730; 86141; 87040; 87088; 87631; 87636; 94640; 94664; 94760

== ENCOUNTER → 2022-02-25 | Outpatient (REF) ==
[~2022-02-25] MED LIST changes: +ALBU18HF2 INH; +AMOX500C2 PO; +ASPI-1238 PO; +FLUT1BLS9 INH; +FURO40TA4 PO; +IRBE300T17 PO; +LEVO500T81 PO; +LEVO75TA PO; +LIOT5TAB10 PO; +MELA10TA2 PO; +NINT100C PO; +PANT40TA52 PO; +PLTR10OP OD; +POTA10TA PO; +PROM5SYR PO; +ROSU20TA32 PO; +SENN-145 PO; +TIOT4MIS2 INH; +VERA240T90 PO; +ZOLP5TAB7 PO
--- NOTE | 2022-02-25 09:34 | Diagnostic Imaging Report ---
INDICATION: Wrist pain. 3 view right wrist show no fracture, dislocation or acute articular irregularity. IMPRESSION: No acute abnormality. Dictated by: Dictated on workstation # [id number]
== END ==
LOC: OCC 08:45
PROVIDERS: ATTEND Nurse Practitioner Family
DX: M25.531 Pain in right wrist (principal)
CPT/HCPCS: 73110

== ENCOUNTER → 2022-03-31 | Outpatient (CLI) | payer OTHER | LOC: CARD 08:43 | PROVIDERS: ATTEND Internal Medicine Cardiovascular Disease | DX: I08.3 Combined rheumatic disorders of mitral, aortic and tricuspid valves (principal); I11.9 Hypertensive heart disease without heart failure; I25.10 Atherosclerotic heart disease of native coronary artery without angina pectoris | CPT/HCPCS: 93306 ==

== ENCOUNTER 2022-04-26 10:27 | Outpatient (RCR) | payer OTHER ==
[~2022-04-26 10:27] MED LIST changes: +LEVO-55 PO; -LEVO500T81 PO
== END 2022-04-27 | disposition home or self-care (01) ==
PROVIDERS: ATTEND Family Medicine
DX: M25.531 Pain in right wrist (principal)

== ENCOUNTER 2022-05-10 10:24 | Outpatient (RCR) | payer OTHER | END 2022-05-10 12:20 | disposition home or self-care (01) | PROVIDERS: ATTEND Family Medicine | DX: M25.531 Pain in right wrist (principal) ==

== ENCOUNTER → 2023-01-18 | Outpatient (CLI) | payer MEDICARE ==
[~2023-01-18] MED LIST changes: -OLME20TA21 PO; +OLME20TA75 PO; -PLTR10OP OD; +POLY10DR20 OD
--- NOTE | 2023-01-18 17:14 | Diagnostic Imaging Report ---
INDICATION: IDIOPATHIC PULMONARY FIBROSIS COPD. TECHNIQUE: Two view chest 2:24 PM CORRELATION STUDY: 11/12/2021 FINDINGS: Left-sided pacemaker, stable. Heart size and mediastinum appear unchanged with calcification of the aortic arch. Vascular appears generally stable. There is again demonstration of coarse prominent, fibrotic-type change particularly at the mid and lower lung cotton but also involving the upper lungs. May be slightly progressed from prior. Definitive superimposed infiltrate is not suggested. No significant effusion and/or pneumothorax. Visualized osseous structures are unremarkable. IMPRESSION: 1. Likely a progressive chronic fibrotic-type change about the lung parenchyma. No definitive acute consolidative infiltrate. Dictated by: Dictated on workstation # [id number]
== END ==
LOC: RAD 14:11
PROVIDERS: ATTEND Nurse Practitioner Family
DX: J84.112 Idiopathic pulmonary fibrosis (principal); J44.9 Chronic obstructive pulmonary disease, unspecified
CPT/HCPCS: 71046

== ENCOUNTER → 2023-07-27 | Outpatient (CLI) | payer MEDICARE ==
[~2023-07-27] MED LIST changes: +CALC200T22 PO; -CALC200T50 PO; +POTA-185 PO; -POTA10TA PO; -ROSU20TA32 PO; +ROSU20TA73 PO
--- NOTE | 2023-07-27 15:33 | Diagnostic Imaging Report ---
HISTORY: Bilateral shoulder pain. TECHNIQUE: Three views of the bilateral shoulders. COMPARISON: None. FINDINGS: No acute fracture or dislocation is seen in the bilateral shoulders. Alignment appears normal. There are mild degenerative changes in the acromioclavicular joints. Glenohumeral joint spaces are preserved. There is a left-sided pacemaker. There is calcific atherosclerosis. IMPRESSION: Mild degenerative changes in the AC joints bilaterally with no acute osseous abnormality seen in the shoulders. Dictated by: Dictated on workstation # [id number]
== END ==
LOC: ORTHO 10:11
PROVIDERS: ATTEND Orthopaedic Surgery
DX: M19.012 Primary osteoarthritis, left shoulder (principal); M19.011 Primary osteoarthritis, right shoulder
CPT/HCPCS: 20610; 73030; G0463; 99203